=== PATIENT | female | born 1955 | race American Indian/Alaskan Native ===

== ENCOUNTER 2021-04-18 11:49 | Emergency (ER) | payer MEDICAID, OTHER ==
--- NOTE | 2021-04-18 13:37 | Event Note ---
ED Screening Note Date of service: 04/18/21 Time: 13:35 ED Screening Note: 65-year-old female patient with history of multiple C-sections, hysterectomy, appendectomy, and hypertension presents to the emergency department with complaints of abdominal pain starting 5 days ago. Describes the pain as "like someone is pouring hot water down my stomach and intestines." Pain is sometimes exacerbated by eating. Pain is most pronounced along the periumbilical area. Took Motrin with limited relief. Last bowel movement was 5 days ago. Hypertensive in triage -- 228/100 General: Awake, appropriately interactive, no acute distress. Neck: Supple. Full range of motion intact. Cardiovascular: Normal peripheral perfusion. Pulmonary: No respiratory distress. Patient is speaking normally without use of accessory muscles. Skin: No apparent rashes or lesions. Neurological: No facial asymmetry. Speech is clear. Follows commands. Patient is alert and oriented. Musculoskeletal: Moves all four extremities spontaneously with normal range of motion. Psych: Cooperative. Appropriate mood and affect. Initial labs ordered; imaging deferred to additional ED providers following complete history and comprehensive physical examination. I have greeted and performed a focused rapid initial assessment of this patient. A comprehensive ED assessment and evaluation of the patient, analysis of all test results, and completion of the medical decision-making process will be conducted by additional ED providers. This initial assessment/diagnostic orders/clinical plan/treatment(s) is/are subject to change based on patients health status, clinical progression and re-assessment. Further treatment and workup at subsequent clinical provider's discretion. Patient/guardian urged not to elope from the ED as their condition may be serious if not clinically assessed and managed.
[2021-04-18 13:55] LABS: Bilirubin,Urine NEG (Negative); Blood,Urine NEG (Negative); Color,Urine Yellow (Yellow); Mucus,Urine FEW /HPF; Protein,Urine <15 mg/dL mg/dL (Negative); Urobilinogen,Urine < 2.0 mg/dL (<2.0)
[2021-04-18 14:07] LABS: Basophils % (Auto) 0.5 % (0.0-1.8); Eosinophils % (Auto) 0.9 % (0.0-4.3); Hematocrit 42.8 % (30.3-42.9); Hemoglobin 14.7 gm/dl (10.1-14.3); Lymphocytes # (Auto) 2.1 K/mm3 (1.2-5.4); Lymphocytes % (Auto) 39.5 % (13.4-35.0); Mean Corpuscular HGB Conc 34 % (30-34); Mean Corpuscular Volume 86 fl (79-97); Monocytes # (Auto) 0.3 K/mm3 (0.0-0.8); Monocytes % (Auto) 6.3 % (0.0-7.3); Platelet Count 148 K/mm3 (140-440); Red Blood Count 4.98 M/mm3 (3.65-5.03); Red Cell Distribution Width 13.9 % (13.2-15.2)
[2021-04-18 14:26] LABS: Alanine Aminotransferase 10 units/L (7-56); Albumin 4.5 g/dL (3.9-5); BUN/Creatinine Ratio 13; Blood Urea Nitrogen 12 mg/dL (7-17); Calcium 9.3 mg/dL (8.4-10.2); Hemolysis Index 6
[2021-04-18] MEDS ORDERED: MORPHINE 4 MG/1 ML INJ IV ONE (14:43)
[2021-04-18] MEDS ORDERED: PANTOPRAZOLE 40 MG INJ IV ONE (14:43)
[2021-04-18] MEDS ORDERED: ONDANSETRON 4 MG/2 ML INJ IV ONE (14:43)
[2021-04-18] MEDS ORDERED: ALUM-MAG HYDROXIDE-SIMETHICONE 200-200-20MG/5ML ORAL LIQD 30 ML PO ONE (14:44)
[2021-04-18] MEDS ORDERED: LIDOCAINE VISCOUS 2% 15 ML ORAL LIQD PO ONE (14:44)
[2021-04-18] MEDS ORDERED: diphenhydrAMINE 50 MG/ML VIAL IV ONE (15:42)
[2021-04-18] MEDS ORDERED: HYDROmorphone 2 MG/1 ML INJ IV ONE (16:07)
--- NOTE | 2021-04-18 16:56 | Emergency Department Report ---
ED Abdominal Pain HPI - General Chief Complaint: Abdominal Pain Stated Complaint: ABD PAINS PUI?: No Time Seen by Provider: 04/18/21 14:30 Source: patient Mode of arrival: Ambulatory Limitations: No Limitations - History of Present Illness Initial Comments: Chief complaint: Abdominal pain HPI: This is a 65-year-old female with history of hypertension who presents with severe epigastric pain which began 2 to 3 days ago. Pain feels like a hot poker stabbing her in her stomach. Pain is worse with eating and drinking especially cold food. Pain is 10 out of 10. She has nausea with small amount of vomiting. She denies diarrhea. She denies fever. She has used ibuprofen recently for the pain which provided mild relief. No history of ulcer disease or pancreatitis. She smokes tobacco. However she has markedly decreased her cigarette use. She denies alcohol use. She does not have a PCP. Pain radiates to the umbilicus. She stopped taking lisinopril because "my blood pressure was good because I was watching it." Complaint: abdominal pain -: Gradual, days(s) (2 to 3 days ) Location: epigastric Radiation: other (Periumbilical) Migration to: periumbilical Severity: severe Severity scale (0 -10): 8 Quality: sharp, burning Consistency: constant Improves With: nothing Worsens With: eating Associated Symptoms: nausea, vomiting Treatments Prior to Arrival: NSAIDs - Related Data Previous Rx's Medication Instructions Recorded Last Taken Type Benzonatate [Tessalon Perles] 100 mg PO Q8HR PRN #20 capsule 08/08/19 Unknown Rx Naproxen [Naprosyn] 500 mg PO BID #20 tablet 08/08/19 Unknown Rx Ondansetron [Zofran Odt] 4 mg PO Q8HR PRN #20 tab.rapdis 08/08/19 Unknown Rx Omeprazole 40 mg PO DAILY #90 capsule. 04/18/21 Unknown Rx Valsartan [Diovan] 80 mg PO DAILY #90 tablet 04/18/21 Unknown Rx Allergies Allergy/AdvReac Type Severity Reaction Status Date / Time codeine Allergy Vomiting Verified 04/18/21 12:06 hydrocodone Allergy Vomiting Verified 04/18/21 12:06 Penicillins Allergy Vomiting Verified 04/18/21 12:06 ED Review of Systems ROS: Stated complaint: ABD PAINS Other details as noted in HPI Comment: All other systems reviewed and negative Constitutional: denies: chills, fever, malaise Respiratory: denies: cough, shortness of breath Gastrointestinal: abdominal pain, nausea, vomiting Musculoskeletal: denies: back pain Neurological: denies: headache ED Past Medical Hx - Past Medical History Previous Medical History?: Yes Hx Hypertension: Yes - Surgical History Past Surgical History?: Yes Hx Appendectomy: Yes Additional Surgical History: hysterectomy, x3, laparoscopy for endometriosis - Social History Smoking Status: Current Every Day Smoker - Medications Home Medications: Home Medications Medication Instructions Recorded Confirmed Last Taken Type Benzonatate [Tessalon Perles] 100 mg PO Q8HR PRN #20 capsule 08/08/19 Unknown Rx Naproxen [Naprosyn] 500 mg PO BID #20 tablet 08/08/19 Unknown Rx Ondansetron [Zofran Odt] 4 mg PO Q8HR PRN #20 tab.rapdis 08/08/19 Unknown Rx Omeprazole 40 mg PO DAILY #90 capsule. 04/18/21 Unknown Rx Valsartan [Diovan] 80 mg PO DAILY #90 tablet 04/18/21 Unknown Rx ED Physical Exam - General Limitations: No Limitations General appearance: alert, in no apparent distress - Head Head exam: Present: atraumatic, normocephalic - Eye Eye exam: Present: normal appearance - ENT ENT exam: Present: mucous membranes moist - Neck Neck exam: Present: normal inspection, full ROM - Respiratory Respiratory exam: Present: normal lung sounds bilaterally. Absent: respiratory distress, wheezes, rales, rhonchi - Cardiovascular Cardiovascular Exam: Present: regular rate, normal rhythm, normal heart sounds. Absent: systolic murmur, diastolic murmur, rubs, gallop - GI/Abdominal GI/Abdominal exam: Present: soft, tenderness, guarding, normal bowel sounds, other (Epigastric right upper quadrant tenderness with voluntary guarding). Absent: distended, rebound, rigid - Extremities Exam Extremities exam: Present: normal inspection - Neurological Exam Neurological exam: Present: alert, oriented X3 - Psychiatric Psychiatric exam: Present: normal affect, normal mood - Skin Skin exam: Present: warm, dry, intact, normal color. Absent: rash ED Course Vital Signs 04/18/21 04/18/21 12:06 15:59 Temperature 98.7 F Pulse Rate 65 58 L Respiratory 20 Rate Blood Pressure 216/89 Blood Pressure 228/100 [Left] O2 Sat by Pulse 100 Oximetry ED Medical Decision Making - Lab Data Result diagrams: 04/18/21 13:45 04/18/21 13:45 - Radiology Data Radiology results: report reviewed Patient Name: ANA LILIA URIBE Gender: Female Date of : 1955 Referring Provider: REGINO ANAYA Organization: [facility] Accession Number: [id number] Requested Date: April 18, 2021 14:42 Report Status: Final Requested Procedure: 1 Procedure Description: CT abdomen pelvis w con Modality: CT Findings Reporting MD: Paul Tucker Dictation Time: April 18, 2021 17:02 School Nurse: Not available Strainer Cleaner Date: CT ABDOMEN AND PELVIS WITH CONTRAST HISTORY: epigastric Abdominal Pain. COMPARISON: None. TECHNIQUE: CT images of the abdomen and pelvis were obtained following administration of intravenous contrast. All CT scans at this location are performed using CT dose reduction for ALARA by means of automated exposure control. CONTRAST: 100 ml of intravenous contrast administered. FINDINGS: Lungs/bones: Lung bases are clear Abdomen/pelvis: The liver, spleen, adrenal glands, pancreas, gallbladder and upper GI tract appear normal. Bilateral kidneys appear normal without hydronephrosis there is a rounded density within the left renal pelvis measuring 2 cm. This could represent a left renal pelvis which is slightly prominent. Small splenule is noted. Appendix is not clearly seen. No focal inflammatory changes identified. No significant adenopathy is seen in the abdomen or pelvis. Fatty infiltration of the right rectus abdominal muscles. IMPRESSION: 1. Rounded prominence within the right renal pelvis could represent extra renal pelvis. This has slightly increased density. A followup renal ultrasound could be performed. No hydronephrosis is otherwise seen. No definite renal or ureteral stone. 2. Fatty infiltration of the right rectus abdominal muscles 3. No focal inflammatory change is identified. Appendix is not clearly seen. 4. Small fluid level in the stomach however no significant inflammatory change and upper GI tract. No obstructive change. Signer Name: Paul Tucker MD Signed: 04/18/2021 5:02 PM Workstation Name: [id number] - Medical Decision Making 1. Epigastric pain. Post prandial due to severe pain in severely elevated blood pressure, CT abdomen pelvis ordered. No evidence of acute inflammatory obstructive process according to CT scan. Normal white count. My clinical impression is peptic ulcer disease. Patient given extensive written and verbal instruction. Prescribed omeprazole. Refer to calender feeder and outpatient medicine physician. 2. Hypertensive urgency due to medication noncompliance. I have prescribed a mlodipine and valsartan. Patient is discharged home. Critical care attestation.: If time is entered above; I have spent that time in minutes in the direct care of this critically ill patient, excluding procedure time. ED Disposition Clinical Impression: Peptic ulcer disease, Hypertensive urgency Disposition: DC- TO HOME OR SELFCARE Is pt being admited?: No Does the pt Need Aspirin: No Condition: Stable Instructions: Abdominal Pain (ED), Peptic Ulcer, [id number], Hypertension, Adult, [id number] Prescriptions: Valsartan [Diovan] 80 mg PO DAILY #90 tablet Omeprazole 40 mg PO DAILY #90 capsule.dr Referrals: JUAN SOLANO MD [Staff Physician] - 3-5 Days ALPESH SHEPARD MD [Staff Physician] - 3-5 Days Forms: Work/School Release Form(ED)
[2021-04-18] MEDS ORDERED: LORazepam 2 MG/ML VIAL IV ONE (17:27)
--- NOTE | 2021-04-18 18:06 | Cat Scan Report ---
CT ABDOMEN AND PELVIS WITH CONTRAST HISTORY: epigastric Abdominal Pain. COMPARISON: None. TECHNIQUE: CT images of the abdomen and pelvis were obtained following administration of intravenous contrast. All CT scans at this location are performed using CT dose reduction for ALARA by means of automated exposure control. CONTRAST: 100 ml of intravenous contrast administered. FINDINGS: Lungs/bones: Lung bases are clear Abdomen/pelvis: The liver, spleen, adrenal glands, pancreas, gallbladder and upper GI tract appear n ormal. Bilateral kidneys appear normal without hydronephrosis there is a rounded density within the l eft renal pelvis measuring 2 cm. This could represent a left renal pelvis which is slightly prominent . Small splenule is noted. Appendix is not clearly seen. No focal inflammatory changes identified. No significant adenopathy is seen in the abdomen or pelvis. Fatty infiltration of the right rectus abdo reddy muscles. IMPRESSION: 1. Rounded prominence within the right renal pelvis could represent extra renal pelvis. This has slig htly increased density. A follow-up renal ultrasound could be performed. No hydronephrosis is otherwi se seen. No definite renal or ureteral stone. 2. Fatty infiltration of the right rectus abdominal muscles 3. No focal inflammatory change is identified. Appendix is not clearly seen. 4. Small fluid level in the stomach however no significant inflammatory change and upper GI tract. No obstructive change. Signer Name: Paul Tucker MD Signed: 04/18/2021 6:02 PM Workstation Name: [id number]
[2021-04-18] MEDS ORDERED: HYDROmorphone 1 MG/1 ML INJ IV PRN (18:44)
[2021-04-18 22:52] VITALS: BP 216/89
== END 2021-04-18 20:25 | disposition home or self-care (01) ==
LOC: ED 11:49
DX: K27.9 Peptic ulcer, site unspecified, unspecified as acute or chronic, without hemorrhage or perforation (principal); I10 Essential (primary) hypertension; F17.200 Nicotine dependence, unspecified, uncomplicated; Z90.710 Acquired absence of both cervix and uterus; Z90.49 Acquired absence of other specified parts of digestive tract; Z98.890 Other specified postprocedural states; Z88.5 Allergy status to narcotic agent; Z88.0 Allergy status to penicillin; Z79.899 Other long term (current) drug therapy
CPT/HCPCS: 36415; 74177; 80053; 81001; 83690; 83735; 85025; 96374; 96375; 96376; 99284; C9113; J1170; J1200; J2060; J2270; J2405; Q9967

== ENCOUNTER 2021-05-30 16:41 | Observation (INO) | payer MEDICAID, OTHER ==
--- NOTE | 2021-05-30 18:21 | XRay Report ---
CHEST 1 VIEW 05/30/2021 6:15 PM INDICATION / CLINICAL INFORMATION: Chest pain. COMPARISON: 08/08/19. FINDINGS: SUPPORT DEVICES: None. HEART / MEDIASTINUM: The heart size and pulmonary vasculature are normal. The aorta is normal in loulou geoff. LUNGS / PLEURA: No significant pulmonary or pleural abnormality. No pneumothorax. ADDITIONAL FINDINGS: No significant additional findings. IMPRESSION: No acute abnormality or significant change. Signer Name: Hitesh Thompson MD Signed: 05/30/2021 6:17 PM Workstation Name: [id number]
[2021-05-30] MEDS ORDERED: NITROGLYCERIN 0.4 MG TAB SUBL SL ONE (18:23)
[2021-05-30] MEDS ORDERED: ONDANSETRON 4 MG/2 ML INJ IV ONE (18:24)
--- NOTE | 2021-05-30 18:26 | Emergency Department Report ---
ED Chest Pain HPI - General Chief Complaint: Chest Pain Stated Complaint: CHEST PAIN Time Seen by Provider: 05/30/21 17:59 Source: patient Mode of arrival: Stretcher Limitations: No Limitations - History of Present Illness Initial Comments: This is a 65-year-old -[place] female presents to the emergency department via EMS from work with complaint of intense pressure-like chest pain to the mid sternum and left side of the chest that started about 4 hours prior to presentation. It is associated with some mild shortness of breath and nausea without vomiting. She denies any fever, cough, lower extremity swelling, abdominal pain. She has a past medical history of hypertension. She is an occasional tobacco smoker. Currently she says her pain is 9 out of 10 in intensity and feels like "someone is sitting on my chest." No recent travel or sick contacts at home. She is vaccinated against COVID-19. No family history of early heart attack. - Related Data Previous Rx's Medication Instructions Recorded Last Taken Type Benzonatate [Tessalon Perles] 100 mg PO Q8HR PRN #20 capsule 08/08/19 Unknown Rx Naproxen [Naprosyn] 500 mg PO BID #20 tablet 08/08/19 Unknown Rx Ondansetron [Zofran Odt] 4 mg PO Q8HR PRN #20 tab.rapdis 08/08/19 Unknown Rx Omeprazole 40 mg PO DAILY #90 capsule. 04/18/21 Unknown Rx Valsartan [Diovan] 80 mg PO DAILY #90 tablet 04/18/21 Unknown Rx Allergies Allergy/AdvReac Type Severity Reaction Status Date / Time codeine Allergy Vomiting Verified 04/18/21 12:06 hydrocodone Allergy Vomiting Verified 04/18/21 12:06 Penicillins Allergy Vomiting Verified 04/18/21 12:06 Heart Score - HEART Score History: Slightly suspicious EKG: Normal Age: > 65 Risk factors: 1-2 risk factors Troponin: < normal limit HEART Score: 3 - EKG Read Time Time EKG Completed: 18:47 EKG Read Time: 18:50 - Critical Actions Critical Actions: 0-3 pts:0.9-1.7%risk of adverse cardiac event.Candidate for discharge ED Review of Systems ROS: Stated complaint: CHEST PAIN Other details as noted in HPI Comment: All other systems reviewed and negative Constitutional: denies: chills, fever Eyes: denies: eye pain, vision change ENT: denies: ear pain, throat pain Respiratory: shortness of breath. denies: cough Cardiovascular: chest pain. denies: palpitations, edema Gastrointestinal: nausea. denies: abdominal pain Genitourinary: denies: dysuria, discharge Musculoskeletal: denies: back pain, arthralgia Skin: denies: rash, lesions Neurological: denies: headache, weakness ED Past Medical Hx - Past Medical History Previous Medical History?: Yes Hx Hypertension: Yes Additional medical history: Stomach ulcers, TIA's - Surgical History Hx Appendectomy: Yes Additional Surgical History: hysterectomy, x3, laparoscopy for endometriosis - Social History Smoking Status: Current Some Day Smoker Substance Use Type: None - Medications Home Medications: Home Medications Medication Instructions Recorded Confirmed Last Taken Type Benzonatate [Tessalon Perles] 100 mg PO Q8HR PRN #20 capsule 08/08/19 Unknown Rx Naproxen [Naprosyn] 500 mg PO BID #20 tablet 08/08/19 Unknown Rx Ondansetron [Zofran Odt] 4 mg PO Q8HR PRN #20 tab.rapdis 08/08/19 Unknown Rx Omeprazole 40 mg PO DAILY #90 capsule. 04/18/21 Unknown Rx Valsartan [Diovan] 80 mg PO DAILY #90 tablet 04/18/21 Unknown Rx ED Physical Exam - General Limitations: No Limitations - Other Other exam information: GENERAL: The patient is well-developed well-nourished. HENT: Normocephalic. Atraumatic. Patient has moist mucous membranes. EYES: Extraocular motions are intact. NECK: Supple. Trachea is midline. CHEST/LUNGS: Clear to auscultation. There is no respiratory distress noted. Chest pain is not reproducible to palpation of the chest wall. HEART/CARDIOVASCULAR: Regular. There is no tachycardia. There is no murmur. ABDOMEN: Abdomen is soft, nontender. Patient has normal bowel sounds. There is no abdominal distention. SKIN: Skin is warm and dry. NEURO: The patient is awake, alert, and oriented. The patient is cooperative. The patient has no focal neurologic deficits. Normal speech. MUSCULOSKELETAL: There is no tenderness or deformity. There is no limitation range of motion. ED Course Vital Signs 05/30/21 05/30/21 05/30/21 18:42 20:11 20:52 Pulse Rate 87 65 Respiratory 19 18 Rate Blood Pressure 198/82 Blood Pressure 180/81 [Right] O2 Sat by Pulse 100 Oximetry LOUIS score - Louis Score Age > 65: (1) Yes Aspirin use within the Past 7 Days: (0) No 3 or more CAD Risk Factors: (0) No 2 or more Angina events in past 24 hrs: (1) Yes Known CAD with more than 50% Stenosis: (0) No Elevated Cardiac Markers: (0) No ST Deviation Greater than 0.5mm: (0) No LOUIS Score: 2 ED Medical Decision Making - Lab Data Result diagrams: 05/30/21 18:52 05/30/21 18:52 - EKG Data -: EKG Interpreted by Me EKG shows normal: sinus rhythm, axis (left axis deviation), intervals, QRS compl exes, ST-T waves Rate: normal - EKG Data When compared to previous EKG there are: previous EKG unavailable Interpretation: other (Sinus rhythm at 70 bpm, left axis deviation, normal intervals. No ST elevation ND.) - Radiology Data Radiology results: image reviewed interpreted by me: Chest x-ray does not show any acute process. There are no pleural effusions, obvious pneumonia and there is no pneumothorax. No widened mediastinum. - Medical Decision Making This patient presents to the emergency department with midsternal to left-sided chest pain that started about 4 hours prior to presentation. Heart and lung sounds are normal to auscultation. EKG does not have any morphology consistent with ST elevation myocardial infarction. Chest x-ray does not show any pneumonia, pleural effusions, pneumothorax, wid ened mediastinum, or any other acute process. Patient's labs have been unremarkable thus far including CBC, metabolic panel and a negative troponin. Patient presents with some hypertensive urgency. She was given her daily dose of Diovan and then a dose of hydralazine. The hypertension is also resistant to IV analgesia. Patient will be admitted to the hospital for further evaluation and treatment and was accepted for admission by the hospitalist, Dr. Alcantara. Critical Care Time: No Critical care attestation.: If time is entered above; I have spent that time in minutes in the direct care of this critically ill patient, excluding procedure time. ED Disposition Clinical Impression: Hypertensive urgency, Acute chest pain, Angina at rest Disposition: OP ADMIT IP TO THIS HOSP Is pt being admited?: Yes Condition: Serious Instructions: Chest Pain (ED) Referrals: PRIMARY CARE, [Primary Care Provider] - 3-5 Days Time of Disposition: 21:24
[2021-05-30] MEDS ORDERED: ONDANSETRON 4 MG ODT TAB PO ONE (19:00)
[2021-05-30 19:25] LABS: Basophils # (Auto) 0.1 K/mm3 (0.0-0.1); Basophils % (Auto) 1.1 % (0.0-1.8); Eosinophils # (Auto) 0.1 K/mm3 (0.0-0.4); Hematocrit 47.1 % (30.3-42.9); Hemoglobin 15.6 gm/dl (10.1-14.3); Lymphocytes # (Auto) 2.3 K/mm3 (1.2-5.4); Lymphocytes % (Auto) 39.7 % (13.4-35.0); Mean Corpuscular HGB Conc 33 % (30-34); Mean Corpuscular Volume 88 fl (79-97); Monocytes # (Auto) 0.4 K/mm3 (0.0-0.8); Monocytes % (Auto) 6.6 % (0.0-7.3); Platelet Count 150 K/mm3 (140-440); Red Blood Count 5.35 M/mm3 (3.65-5.03)
[2021-05-30 19:33] LABS: Alanine Aminotransferase 10 units/L (7-56); Albumin 4.4 g/dL (3.9-5); BUN/Creatinine Ratio 16; Blood Urea Nitrogen 14 mg/dL (7-17); Calcium 9.6 mg/dL (8.4-10.2); Hemolysis Index 6
[2021-05-30] MEDS ORDERED: ASPIRIN 81 MG TAB CHEW PO ONE (19:39)
[2021-05-30] MEDS ORDERED: VALSARTAN 40 MG TAB PO ONE (19:52)
[2021-05-30] MEDS ORDERED: fentaNYL 100 MCG/2 ML INJ ONE (20:00)
[2021-05-30] MEDS ORDERED: fentaNYL 100 MCG/2 ML INJ IV ONE (20:00)
[2021-05-30] MEDS ORDERED: hydrALAZINE 20 MG/1 ML INJ IV ONE (21:48)
[2021-05-30] MEDS ORDERED: traMADol 50 MG TAB PO PRN (22:17)
[2021-05-30] MEDS ORDERED: ACETAMINOPHEN 325 MG TAB PO PRN (22:17)
[2021-05-30] MEDS ORDERED: MORPHINE 4 MG/1 ML INJ IV PRN ×2 (22:17→23:38)
[2021-05-30] MEDS ORDERED: NITROGLYCERIN 0.4 MG TAB SUBL SL PRN (22:17)
[2021-05-30] MEDS ORDERED: BENZONATATE 100 MG CAP PO PRN (22:20)
--- NOTE | 2021-05-30 22:25 | History and Physical Report ---
History of Present Illness Date of examination: 05/30/21 Date of admission: 05/30/21 21:24 Chief complaint: Chest pain History of present illness: 65-year-old -[place] female with history of hypertension, stomach ulcer and TIA was brought to the emergency room because of intense pressure-like chest pain to the mid sternum and left side of the chest that started about 4 hours prior to presentation. It is associated with some mild shortness of breath and nausea without vomiting. She denies any fever, cough, lower extremity swelling, abdominal pain. She is an occasional tobacco smoker. Currently she says her pain is 9 out of 10 in intensity and feels like "someone is sitting on my chest." No recent travel or sick contacts at home. She is vaccinated against COVID-19. No family history of early heart attack. In the emergency room initial cardiac enzyme is negative troponin is 0.010 Past History Past Medical History: hypertension, other (Stomach ulcers, TIA) Medications and Allergies Allergies Allergy/AdvReac Type Severity Reaction Status Date / Time codeine Allergy Vomiting Verified 04/18/21 12:06 hydrocodone Allergy Vomiting Verified 04/18/21 12:06 Penicillins Allergy Vomiting Verified 04/18/21 12:06 Home Medications Medication Instructions Recorded Confirmed Last Taken Type Benzonatate [Tessalon Perles] 100 mg PO Q8HR PRN #20 capsule 08/08/19 Unknown Rx Naproxen [Naprosyn] 500 mg PO BID #20 tablet 08/08/19 Unknown Rx Ondansetron [Zofran Odt] 4 mg PO Q8HR PRN #20 tab.rapdis 08/08/19 Unknown Rx Omeprazole 40 mg PO DAILY #90 capsule. 04/18/21 Unknown Rx Valsartan [Diovan] 80 mg PO DAILY #90 tablet 04/18/21 Unknown Rx Review of Systems Cardiovascular: chest pain Gastrointestinal: nausea Exam - Constitutional Vitals: Temp Pulse Resp BP Pulse Ox 65 18 198/82 100 05/30/21 20:52 05/30/21 20:11 05/30/21 20:52 05/30/21 18:42 General appearance: Present: no acute distress, well-nourished - EENT Eyes: Present: PERRL ENT: hearing intact, clear oral mucosa - Neck Neck: Present: supple, normal ROM - Respiratory Respiratory effort: normal Respiratory: bilateral: CTA - Cardiovascular Heart Sounds: Present: S1 & S2. Absent: rub, click - Extremities Extremities: pulses symmetrical, No edema Peripheral Pulses: within normal limits - Abdominal General gastrointestinal: Present: soft, non-tender, non-distended, normal bowel sounds Female genitourinary: Present: normal - Integumentary Integumentary: Present: clear, warm, dry - Musculoskeletal Musculoskeletal: gait normal, strength equal bilaterally - Psychiatric Psychiatric: appropriate mood/affect, intact judgment & insight - Neurologic Neurologic: CNII-XII intact, moves all extremities HEART Score - HEART Score EKG: Normal Age: > 65 Risk factors: 1-2 risk factors Troponin: Troponin T < 0.010 ng/mL (0.00-0.029) 05/30/21 21:20 Troponin: < normal limit - Critical Actions Critical Actions: 0-3 pts:0.9-1.7%risk of adverse cardiac event.Candidate for discharge Results - Labs CBC & Chem 7: 05/30/21 18:52 05/30/21 18:52 Labs: Laboratory Last Values WBC 5.8 K/mm3 (4.5-11.0) 05/30/21 18:52 RBC 5.35 M/mm3 (3.65-5.03) H 05/30/21 18:52 Hgb 15.6 gm/dl (10.1-14.3) H 05/30/21 18:52 Hct 47.1 % (30.3-42.9) H 05/30/21 18:52 MCV 88 fl (79-97) 05/30/21 18:52 MCH 29 pg (28-32) 05/30/21 18:52 MCHC 33 % (30-34) 05/30/21 18:52 RDW 14.0 % (13.2-15.2) 05/30/21 18:52 Plt Count 150 K/mm3 (140-440) 05/30/21 18:52 Lymph % (Auto) 39.7 % (13.4-35.0) H 05/30/21 18:52 [place] % (Auto) 6.6 % (0.0-7.3) 05/30/21 18:52 Eos % (Auto) 1.0 % (0.0-4.3) 05/30/21 18:52 Baso % (Auto) 1.1 % (0.0-1.8) 05/30/21 18:52 Lymph # (Auto) 2.3 K/mm3 (1.2-5.4) 05/30/21 18:52 [place] # (Auto) 0.4 K/mm3 (0.0-0.8) 05/30/21 18:52 Eos # (Auto) 0.1 K/mm3 (0.0-0.4) 05/30/21 18:52 Baso # (Auto) 0.1 K/mm3 (0.0-0.1) 05/30/21 18:52 Seg Neutrophils % 51.6 % (40.0-70.0) 05/30/21 18:52 Seg Neutrophils # 3.0 K/mm3 (1.8-7.7) 05/30/21 18:52 Sodium 139 mmol/L (137-145) 05/30/21 18:52 Potassium 3.6 mmol/L (3.6-5.0) 05/30/21 18:52 Chloride 104.6 mmol/L (98-107) 05/30/21 18:52 Carbon Dioxide 24 mmol/L (22-30) 05/30/21 18:52 Anion Gap 14 mmol/L 05/30/21 18:52 BUN 14 mg/dL (7-17) 05/30/21 18:52 Creatinine 0.9 mg/dL (0.6-1.2) 05/30/21 18:52 Estimated GFR > 60 ml/min 05/30/21 18:52 BUN/Creatinine Ratio 16 % 05/30/21 18:52 Glucose 92 mg/dL (65-100) 05/30/21 18:52 Calcium 9.6 mg/dL (8.4-10.2) 05/30/21 18:52 Total Bilirubin 0.20 mg/dL (0.1-1.2) 05/30/21 18:52 AST 17 units/L (5-40) 05/30/21 18:52 ALT 10 units/L (7-56) 05/30/21 18:52 Alkaline Phosphatase 122 units/L (35-129) 05/30/21 18:52 Troponin T < 0.010 ng/mL (0.00-0.029) 05/30/21 21:20 Total Protein 7.5 g/dL (6.3-8.2) 05/30/21 18:52 Albumin 4.4 g/dL (3.9-5) 05/30/21 18:52 Albumin/Globulin Ratio 1.4 % 05/30/21 18:52 - Imaging and Cardiology Chest x-ray: report reviewed Assessment and Plan VTE prophylaxis?: Chemical Plan of care discussed with patient/family: Yes - Patient Problems (1) Acute coronary syndrome Current Visit: Yes Status: Acute Plan to address problem: Admit the patient to the medical telemetry. Aspirin 325 mg p.o. daily. Lipitor 40 mg p.o. daily. Nitroglycerin as needed. Serial cardiac enzymes. Echocardiogram. Consult cardiology if needed (2) Hypertension Current Visit: Yes Status: Acute Plan to address problem: Diovan 80 mg p.o. daily. We will continue the home medication we will monitor the blood pressure closely (3) GERD (gastroesophageal reflux disease) Current Visit: Yes Status: Acute Plan to address problem: Protonix 40 mg p.o. daily. We will continue the home medication. Outpatient follow-up with GI (4) TIA (transient ischemic attack) Current Visit: Yes Status: Acute Plan to address problem: Stable. Aspirin 325 mg p.o. daily. Lipitor 40 mg p.o. daily (5) DVT prophylaxis Current Visit: Yes Status: Acute Plan to address problem: Heparin 5000 units subcu every 8 hours for DVT prophylaxis. Protonix 40 mg p.o. daily for GI prophylaxis. Patient is a full code
[2021-05-30] MEDS ORDERED: HYDROmorphone 2 MG/1 ML INJ ONE (23:40)
[2021-05-31] MEDS: HYDROmorphone 2 MG/1 ML INJ IV PRN ×5 (00:29→22:56)
[2021-05-31 00:52] LABS: Basophils # (Auto) 0.1 K/mm3 (0.0-0.1); Basophils % (Auto) 0.7 % (0.0-1.8); Eosinophils # (Auto) 0.1 K/mm3 (0.0-0.4); Eosinophils % (Auto) 1.6 % (0.0-4.3); Hemoglobin 14.5 gm/dl (10.1-14.3); Lymphocytes # (Auto) 3.9 K/mm3 (1.2-5.4); Lymphocytes % (Auto) 50.5 % (13.4-35.0); Mean Corpuscular HGB Conc 33 % (30-34); Mean Corpuscular Volume 88 fl (79-97); Monocytes # (Auto) 0.7 K/mm3 (0.0-0.8); Monocytes % (Auto) 8.7 % (0.0-7.3); Platelet Count 169 K/mm3 (140-440); Red Blood Count 5.03 M/mm3 (3.65-5.03); Red Cell Distribution Width 14.5 % (13.2-15.2)
[2021-05-31 01:07] LABS: BUN/Creatinine Ratio 16; Blood Urea Nitrogen 14 mg/dL (7-17); Calcium 9.1 mg/dL (8.4-10.2); Hemolysis Index 1
[2021-05-31] MEDS: HEPARIN 5,000 UNIT/1 ML VIAL SUB-Q SCH ×3 (05:45→22:56)
[2021-05-31] MEDS ORDERED: VALSARTAN 40 MG TAB PO SCH (10:00)
[2021-05-31] MEDS ORDERED: NON-FORMULARY EACH (Valsartan [Diovan] 80 MG Tablet) PO SCH (10:00)
[2021-05-31] MEDS: ASPIRIN EC 325 MG TAB PO SCH (11:28)
[2021-05-31] MEDS: PANTOPRAZOLE 40 MG TAB PO SCH (11:28)
--- NOTE | 2021-05-31 16:02 | Consultation ---
History of Present Illness Consult date: 05/31/21 Requesting physician: CATHERINE LUDWIG Consult reason: chest pain History of present illness: Pt is a 65-year-old female, previously unknown to our practice, who presented with complaints of intermittent chest pressure that started approximately 3-4 hours prior to arrival. Pt reports bending over from her chair at home and states "when I sat back up, it felt like something was sitting on my chest." Pain radiates to her back and to the left side of her chest. Associated with diaphoresis, palpitations, SOB, and nausea. Severity has decreased from 08/24 to 02/22 with IV morphine and dilaudid. Trop neg x 3. ECG reveals no acute ischemic changes. CXR reveals no acute findings. Previous cardiac PET MPI 02/2014 revealed no evidence of ischemia or scar, EF 52% at rest and 62% during stress. No additional prior cardiac workup available for review. Past History Past Medical History: GERD, hypertension, other (TIA) Past Surgical History: denies: valve replacement, CABG, PTCA Social history: smoking (current smoker). denies: alcohol abuse Family history: denies: CAD Medications and Allergies Allergies Allergy/AdvReac Type Severity Reaction Status Date / Time codeine Allergy Vomiting Verified 04/18/21 12:06 hydrocodone Allergy Vomiting Verified 04/18/21 12:06 morphine Allergy Rash Verified 05/30/21 23:08 Penicillins Allergy Vomiting Verified 04/18/21 12:06 Home Medications Medication Instructions Recorded Confirmed Last Taken Type Benzonatate [Tessalon Perles] 100 mg PO Q8HR PRN #20 capsule 08/08/19 05/31/21 Unknown Rx Naproxen [Naprosyn] 500 mg PO BID #20 tablet 08/08/19 05/31/21 Unknown Rx Ondansetron [Zofran Odt] 4 mg PO Q8HR PRN #20 tab.rapdis 08/08/19 05/31/21 Unknown Rx Omeprazole 40 mg PO DAILY #90 capsule. 04/18/21 05/31/21 Unknown Rx Valsartan [Diovan] 80 mg PO DAILY #90 tablet 04/18/21 05/31/21 Unknown Rx Active Meds: Active Medications Acetaminophen (Acetaminophen 325 Mg Tab) 650 mg PO Q6H PRN PRN Reason: Pain, Mild (1-3) Aspirin (Aspirin Ec 325 Mg Tab) 325 mg PO QDAY [facility] Last Admin: 05/31/21 11:28 Dose: 325 mg Documented by: Atorvastatin Calcium (Atorvastatin 40 Mg Tab) 40 mg PO QHS [facility] Benzonatate (Benzonatate 100 Mg Cap) 100 mg PO Q8HR PRN PRN Reason: Cough Heparin Sodium (Porcine) (Heparin 5,000 Unit/1 Ml Vial) 5,000 unit SUB-Q Q8HR [facility] Last Admin: 05/31/21 05:45 Dose: 5,000 unit Documented by: Hydromorphone HCl (Hydromorphone 2 Mg/1 Ml Inj) 1 mg IV Q3H PRN PRN Reason: Pain , Severe (7-10) Last Admin: 05/31/21 11:28 Dose: 1 mg Documented by: Naproxen (Naproxen 500 Mg Tab) 500 mg PO BID [facility] Nitroglycerin (Nitroglycerin 0.4 Mg Tab Subl) 0.4 mg SL Q5M PRN PRN Reason: Chest Pain Pantoprazole Sodium (Pantoprazole 40 Mg Tab) 40 mg PO QDAY [facility] Last Admin: 05/31/21 11:28 Dose: 40 mg Documented by: Sodium Chloride (Sodium Chloride 0.9% 10 Ml Flush Syringe) 10 ml IV PRN PRN PRN Reason: LINE FLUSH Last Admin: 05/31/21 11:28 Dose: 10 ml Documented by: Tramadol HCl (Tramadol 50 Mg Tab) 50 mg PO Q6H PRN PRN Reason: Pain, Moderate (4-6) Valsartan (Valsartan 40 Mg Tab) 80 mg PO DAILY [facility] Last Admin: 05/31/21 11:28 Dose: 80 mg Documented by: Review of Systems Constitutional: sweats, no fever, no chills Ears, nose, mouth and throat: no nasal congestion, no sore throat Cardiovascular: chest pain, palpitations, shortness of breath, no orthopnea, no edema, no syncope, no lightheadedness, no claudication Respiratory: shortness of breath, no cough Gastrointestinal: nausea, no abdominal pain, no vomiting Genitourinary Female: no pelvic pain, no flank pain, no dysuria Musculoskeletal: no neck stiffness, no neck pain, no myalgias Integumentary: no rash, no wounds Neurological: no head injury, no paralysis, no weakness, no numbness, no tingling, no seizures, no syncope, no vertigo, no headaches Endocrine: no cold intolerance, no heat intolerance, no polydipsia, no polyuria Hematologic/Lymphatic: no easy bruising, no easy bleeding Allergic/Immunologic: no anaphylaxis Physical Examination Last Vital Signs Temp 98.0 F 05/31/21 15:48 Pulse 58 L 05/31/21 15:48 Resp 18 05/31/21 15:48 BP 131/54 05/31/21 15:48 Pulse Ox 100 05/31/21 15:48 General appearance: no acute distress HEENT: Positive: EOMI, Normocephaly, Mucus Membranes Moist Neck: Positive: neck supple, trachea midline Cardiac: Positive: Reg Rate and Rhythm, S1/S2 Lungs: Positive: clear to auscultation Neuro: Positive: Grossly Intact Abdomen: Positive: Soft. Negative: Tender Skin: Negative: Rash Musculoskeletal: No Pain Extremities: Present: upper extr. pulses, lower extr. pulses. Absent: edema Results 05/31/21 00:08 05/31/21 00:08 Cardiac Enzymes 05/30/21 Range/Units 18:52 AST 17 (5-40) units/L CBC 05/30/21 05/31/21 Range/Units 18:52 00:08 WBC 5.8 7.6 (4.5-11.0) K/mm3 RBC 5.35 H 5.03 (3.65-5.03) M/mm3 Hgb 15.6 H 14.5 H (10.1-14.3) gm/dl Hct 47.1 H 44.0 H (30.3-42.9) % Plt Count 150 169 (140-440) K/mm3 Lymph # (Auto) 2.3 3.9 (1.2-5.4) K/mm3 [place] # (Auto) 0.4 0.7 (0.0-0.8) K/mm3 Eos # (Auto) 0.1 0.1 (0.0-0.4) K/mm3 Baso # (Auto) 0.1 0.1 (0.0-0.1) K/mm3 Comprehensive Metabolic Panel 05/30/21 05/31/21 Range/Units 18:52 00:08 Sodium 139 139 (137-145) mmol/L Potassium 3.6 4.0 (3.6-5.0) mmol/L Chloride 104.6 105.6 (98-107) mmol/L Carbon Dioxide 24 22 (22-30) mmol/L BUN 14 14 (7-17) mg/dL Creatinine 0.9 0.9 (0.6-1.2) mg/dL Glucose 92 86 (65-100) mg/dL Calcium 9.6 9.1 (8.4-10.2) mg/dL AST 17 (5-40) units/L ALT 10 (7-56) units/L Alkaline Phosphatase 122 (35-129) units/L Total Protein 7.5 (6.3-8.2) g/dL Albumin 4.4 (3.9-5) g/dL - Imaging and Cardiology Echo: pending EKG: report reviewed, image reviewed - EKG Interpretation EKG: no acute changes EKG interpretations - EKG Sinus rhythms and dysrhythmias: sinus rhythm Assessment and Plan Echo reviewed - EF 55-60%, mild diastolic dysfxn, no significant valvular abnormalities. Plan for Lexiscan stress MPI on Wednesday. Hold Valsartan for now, and instead start Amlodipine 5mg daily. No beta sy due to mild sinus bradycardia at baseline. Signed by: Luisa Brown NP Pt seen in conjunction with Dr. Kay, who agrees with the assessment and plan of care. - Patient Problems (1) Chest pain Current Visit: Yes Status: Acute (2) Hypertension Current Visit: Yes Status: Chronic Qualifiers: Hypertension type: primary hypertension Qualified Code(s): I10 - Essential (primary) hypertension (3) GERD (gastroesophageal reflux disease) Current Visit: Yes Status: Chronic (4) Tobacco abuse Current Visit: Yes Status: Chronic (5) H/O TIA (transient ischemic attack) and stroke Current Visit: Yes Status: Chronic
[2021-05-31] MEDS: NAPROXEN 500 MG TAB PO SCH ×2 (16:26→22:55)
--- NOTE | 2021-05-31 17:44 | Progress Note ---
Assessment and Plan Assessment and plan: Assessment: Significant anterior chest pain radiating to left arm associated with nausea Mostly resolved but not completely aspirin and nitro, troponins x3 is negative Mild epigastric pain/discomfort with significant nausea and some reproducible epigastric tenderness. LFTs normal. History of GERD No personal or family of CAD. No history of chest pains. Smokes 1 pack of cigarettes in 1 week. History of hypertension Stable sinus bradycardia Questionable history of TIA Mild obesity Plan: Hemodynamically stable Cardiology is evaluating, patient is on anti-ischemic regimen Echo ordered, report pending Obtain lipase Continue PPI Discussed with the patient in detail. History Interval history: Patient presented with 2 episodes of significant anterior chest pain with radiation to left arm associated with nausea, improved with aspirin and nitro but did not complete resolve yet. She currently has significant nausea and feels like vomiting. She is not excessively using alcohol or NSAIDs. Hematochezia or melena. No history of CAD. No history of chest pains. Never had a stress test. Family history negative for CAD. She does smoke 1 pack of cigarettes in a week. No syncopal episodes. Hospitalist Physical - Constitutional Vitals: Temp Pulse Resp BP Pulse Ox 98.0 F 58 L 18 131/54 100 05/31/21 15:48 05/31/21 15:48 05/31/21 15:48 05/31/21 15:48 05/31/21 15:48 General appearance: Present: no acute distress, other (Mildly obese) - EENT Eyes: Present: PERRL, EOM intact. Absent: scleral icterus ENT: clear oral mucosa - Neck Neck: Present: supple - Respiratory Respiratory effort: normal Respiratory: bilateral: CTA - Cardiovascular Rhythm: other (Bradycardia) Heart Sounds: Absent: systolic murmur - Extremities Extremities: No edema - Abdominal General gastrointestinal: soft, tender (Mild to moderate epigastric tenderness present.), non-distended - Integumentary Integumentary: Absent: jaundice, rash - Psychiatric Psychiatric: appropriate mood/affect - Neurologic Neurologic: no focal deficits HEART Score - HEART Score EKG: Normal Age: > 65 Risk factors: 1-2 risk factors Troponin: Troponin T < 0.010 ng/mL (0.00-0.029) 05/31/21 15:41 Troponin: < normal limit - Critical Actions Critical Actions: 0-3 pts:0.9-1.7%risk of adverse cardiac event.Candidate for discharge Results - Labs CBC & Chem 7: 05/31/21 00:08 05/31/21 00:08 Labs: Laboratory Last Values WBC 7.6 K/mm3 (4.5-11.0) 05/31/21 00:08 RBC 5.03 M/mm3 (3.65-5.03) 05/31/21 00:08 Hgb 14.5 gm/dl (10.1-14.3) H 05/31/21 00:08 Hct 44.0 % (30.3-42.9) H 05/31/21 00:08 MCV 88 fl (79-97) 05/31/21 00:08 MCH 29 pg (28-32) 05/31/21 00:08 MCHC 33 % (30-34) 05/31/21 00:08 RDW 14.5 % (13.2-15.2) 05/31/21 00:08 Plt Count 169 K/mm3 (140-440) 05/31/21 00:08 Lymph % (Auto) 50.5 % (13.4-35.0) H 05/31/21 00:08 [place] % (Auto) 8.7 % (0.0-7.3) H 05/31/21 00:08 Eos % (Auto) 1.6 % (0.0-4.3) 05/31/21 00:08 Baso % (Auto) 0.7 % (0.0-1.8) 05/31/21 00:08 Lymph # (Auto) 3.9 K/mm3 (1.2-5.4) 05/31/21 00:08 [place] # (Auto) 0.7 K/mm3 (0.0-0.8) 05/31/21 00:08 Eos # (Auto) 0.1 K/mm3 (0.0-0.4) 05/31/21 00:08 Baso # (Auto) 0.1 K/mm3 (0.0-0.1) 05/31/21 00:08 Seg Neutrophils % 38.5 % (40.0-70.0) L 05/31/21 00:08 Seg Neutrophils # 2.9 K/mm3 (1.8-7.7) 05/31/21 00:08 Sodium 139 mmol/L (137-145) 05/31/21 00:08 Potassium 4.0 mmol/L (3.6-5.0) 05/31/21 00:08 Chloride 105.6 mmol/L (98-107) 05/31/21 00:08 Carbon Dioxide 22 mmol/L (22-30) 05/31/21 00:08 Anion Gap 15 mmol/L 05/31/21 00:08 BUN 14 mg/dL (7-17) 05/31/21 00:08 Creatinine 0.9 mg/dL (0.6-1.2) 05/31/21 00:08 Estimated GFR > 60 ml/min 05/31/21 00:08 BUN/Creatinine Ratio 16 % 05/31/21 00:08 Glucose 86 mg/dL (65-100) 05/31/21 00:08 Calcium 9.1 mg/dL (8.4-10.2) 05/31/21 00:08 Total Bilirubin 0.20 mg/dL (0.1-1.2) 05/30/21 18:52 AST 17 units/L (5-40) 05/30/21 18:52 ALT 10 units/L (7-56) 05/30/21 18:52 Alkaline Phosphatase 122 units/L (35-129) 05/30/21 18:52 Troponin T < 0.010 ng/mL (0.00-0.029) 05/31/21 15:41 Total Protein 7.5 g/dL (6.3-8.2) 05/30/21 18:52 Albumin 4.4 g/dL (3.9-5) 05/30/21 18:52 Albumin/Globulin Ratio 1.4 % 05/30/21 18:52 Vicente/IV: Voiding Method Toilet Active Medications - Current Medications Current Medications: Generic Name Dose Route Start Last Admin Trade Name Freq PRN Reason Stop Dose Admin Acetaminophen 650 mg 05/30/21 22:17 Acetaminophen 325 Mg Tab PO Q6H PRN Pain, Mild (1-3) Amlodipine Besylate 5 mg 06/01/21 10:00 Amlodipine 5 Mg Tab PO QDAY ROSA M Aspirin 325 mg 05/31/21 10:00 05/31/21 11:28 Aspirin Ec 325 Mg Tab PO 325 mg QDAY [facility] Administration Atorvastatin Calcium 40 mg 05/31/21 22:00 Atorvastatin 40 Mg Tab PO QHS ROSA M Benzonatate 100 mg 05/30/21 22:20 Benzonatate 100 Mg Cap PO Q8HR PRN Cough Heparin Sodium (Porcine) 5,000 unit 05/31/21 06:00 05/31/21 16:27 Heparin 5,000 Unit/1 Ml Vial SUB-Q Not Given Q8HR ROSA M Hydromorphone HCl 1 mg 05/30/21 23:40 05/31/21 11:28 Hydromorphone 2 Mg/1 Ml Inj IV 1 mg Q3H PRN Administration Pain , Severe (7-10) Naproxen 500 mg 05/31/21 10:00 05/31/21 16:26 Naproxen 500 Mg Tab PO Not Given BID ROSA M Nitroglycerin 0.4 mg 05/30/21 22:17 Nitroglycerin 0.4 Mg Tab Subl SL Q5M PRN Chest Pain Pantoprazole Sodium 40 mg 05/31/21 10:00 05/31/21 11:28 Pantoprazole 40 Mg Tab PO 40 mg QDAY ROSA M Administration Sodium Chloride 10 ml 05/30/21 22:17 05/31/21 11:28 Sodium Chloride 0.9% 10 Ml Flush Syringe IV 10 ml PRN PRN Administration LINE FLUSH Tramadol HCl 50 mg 05/30/21 22:17 Tramadol 50 Mg Tab PO Q6H PRN Pain, Moderate (4-6)
[2021-05-31] MEDS ORDERED: MAGNESIUM HYDROXIDE (MOM) ORAL LIQD UDC PO PRN (22:48)
[2021-06-01] MEDS: HEPARIN 5,000 UNIT/1 ML VIAL SUB-Q SCH ×4 (05:13→21:44)
[2021-06-01] MEDS: HYDROmorphone 2 MG/1 ML INJ IV PRN ×3 (07:29→21:45)
--- NOTE | 2021-06-01 08:38 | Progress Note ---
Assessment and Plan Echo reviewed - EF 55-60%, mild diastolic dysfxn, no significant valvular abnormalities. Plan for Lexiscan stress MPI in AM. NPO after midnight. Continue present cardiac mgmt. Signed by: Luisa Brown NP Pt seen in conjunction with Dr. Kay, who agrees with the assessment and plan of care. - Patient Problems (1) Chest pain Current Visit: Yes Status: Acute (2) Hypertension Current Visit: Yes Status: Chronic Qualifiers: Hypertension type: primary hypertension Qualified Code(s): I10 - Essential (primary) hypertension (3) GERD (gastroesophageal reflux disease) Current Visit: Yes Status: Chronic (4) Tobacco abuse Current Visit: Yes Status: Chronic (5) H/O TIA (transient ischemic attack) and stroke Current Visit: Yes Status: Chronic Subjective Date of service: 06/01/21 Principal diagnosis: Chest Pain Interval history: Still with mild chest pain this AM, relieved by IV Dilaudid. No additional complaints. Tele reviewed - SR/SB 40-50s, no acute events overnight. Objective Last Vital Signs Temp 98.3 F 06/01/21 05:23 Pulse 57 L 06/01/21 05:23 Resp 18 06/01/21 05:23 BP 137/62 06/01/21 05:23 Pulse Ox 100 06/01/21 05:23 - Physical Examination General: No Apparent Distress HEENT: Positive: EOMI, Normocephaly, Mucus Membranes Moist Neck: Positive: neck supple, trachea midline Cardiac: Positive: Reg Rate and Rhythm, S1/S2 Lungs: Positive: clear to auscultation Neuro: Positive: Grossly Intact Abdomen: Positive: Soft. Negative: Tender Skin: Negative: Rash Musculoskeletal: No Pain Extremities: Present: upper extr. pulses, lower extr. pulses. Absent: edema - Imaging and Cardiology EKG: report reviewed, image reviewed Pharmacologic stress test: pending Echo: report reviewed - Telemetry EKG Rhythm: Sinus Bradycardia - EKG Sinus rhythms and dysrhythmias: sinus rhythm
[2021-06-01] MEDS: PANTOPRAZOLE 40 MG TAB PO SCH (11:09)
[2021-06-01] MEDS: amLODIPine 5 MG TAB PO SCH (11:09)
[2021-06-01] MEDS: NAPROXEN 500 MG TAB PO SCH ×2 (11:09→21:44)
[2021-06-01] MEDS: ASPIRIN EC 325 MG TAB PO SCH (11:09)
[2021-06-01] MEDS ORDERED: ONDANSETRON 4 MG/2 ML INJ IV PRN (11:16)
--- NOTE | 2021-06-01 12:13 | XRay Report ---
ABDOMEN 1 VIEW(S) INDICATION / CLINICAL INFORMATION: constipaiton, n/v. COMPARISON: None available. FINDINGS: TUBES / LINES: None. BOWEL GAS PATTERN/EXTRALUMINAL GAS: No significant abnormality. No pneumatosis or secondary signs of free air. ADDITIONAL FINDINGS: No significant additional findings. IMPRESSION: 1. No acute findings. Signer Name: Fuad Barrientos MD Signed: 06/01/2021 12:09 PM Workstation Name: [id number]
[2021-06-01 15:02] LABS: Basophils % (Auto) 0.7 % (0.0-1.8); Eosinophils % (Auto) 0.8 % (0.0-4.3); Hematocrit 42.3 % (30.3-42.9); Hemoglobin 14.2 gm/dl (10.1-14.3); Lymphocytes # (Auto) 1.8 K/mm3 (1.2-5.4); Lymphocytes % (Auto) 35.6 % (13.4-35.0); Mean Corpuscular HGB Conc 34 % (30-34); Mean Corpuscular Volume 88 fl (79-97); Monocytes # (Auto) 0.4 K/mm3 (0.0-0.8); Monocytes % (Auto) 7.5 % (0.0-7.3); Platelet Count 136 K/mm3 (140-440); Red Blood Count 4.78 M/mm3 (3.65-5.03); Red Cell Distribution Width 14.1 % (13.2-15.2)
[2021-06-01 15:13] LABS: Alanine Aminotransferase 8 units/L (7-56); Albumin 4.2 g/dL (3.9-5); BUN/Creatinine Ratio 14; Blood Urea Nitrogen 13 mg/dL (7-17); Calcium 9.6 mg/dL (8.4-10.2); Hemolysis Index 15
--- NOTE | 2021-06-01 15:41 | Progress Note ---
Assessment and Plan Assessment and plan: Assessment: Presented with significant anterior chest pain radiating to left arm associated with nausea Mostly resolved but not completely, aspirin and nitro, troponins x3 is negative Mild epigastric pain/discomfort with significant nausea/vomiting and some reproducible epigastric tenderness. LFTs normal. History of GERD and chronic constipation from IBD No personal or family of CAD. No history of chest pains. Smokes 1 pack of cigarettes in 1 week. History of hypertension Stable sinus bradycardia Questionable history of TIA Mild obesity The predominant symptoms currently are nausea and vomiting with some epigastric tenderness. Plan: Hemodynamically stable Cardiology is evaluating, patient is on anti-ischemic regimen Echo unremarkable with a normal LV function. No wall motion normalities Lipids normal. LFTs remain normal. KUB unremarkable, afebrile. Normal WBC. Gallbladder ultrasound ordered. Defer GI consult until stress test is completed Discussed with the patient in detail and the staff History Interval history: Patient presented with 2 episodes of significant anterior chest pain with radiation to left arm associated with nausea, improved with aspirin and nitro but did not complete resolve yet. She currently has significant nausea and feels like vomiting. Patient history of chronic constipation from IBD. She is not excessively using alcohol or NSAIDs. No hematochezia or melena. No history of CAD. No history of chest pains. Never had a stress test. Family history negative for CAD. She does smoke 1 pack of cigarettes in a week. No syncopal episodes. Serial troponins x3, cardiology is evaluating, nuclear stress test ordered for tomorrow. Patient is receiving PPI and antiemetic. Gallbladder ultrasound ordered. LFTs however normal. Afebrile. Normal WBC. KUB unremarkable. Hospitalist Physical - Constitutional Vitals: Temp Pulse Resp BP Pulse Ox 98.3 F 57 L 18 137/62 100 06/01/21 05:23 06/01/21 05:23 06/01/21 05:23 06/01/21 05:23 06/01/21 05:23 General appearance: Present: mild distress (From nausea and vomiting) - EENT Eyes: Present: PERRL, EOM intact ENT: hearing intact, clear oral mucosa - Neck Neck: Present: supple, other (No JVD) - Respiratory Respiratory effort: normal Respiratory: bilateral: CTA - Cardiovascular Rhythm: regular - Extremities Extremities: No edema - Abdominal General gastrointestinal: soft, non-distended, normal bowel sounds, other (Still some epigastric tenderness.), no rigid - Integumentary Integumentary: Absent: rash - Psychiatric Psychiatric: appropriate mood/affect - Neurologic Neurologic: no focal deficits HEART Score - HEART Score EKG: Normal Age: > 65 Risk factors: 1-2 risk factors Troponin: Troponin T < 0.010 ng/mL (0.00-0.029) 05/31/21 15:41 Troponin: < normal limit - Critical Actions Critical Actions: 0-3 pts:0.9-1.7%risk of adverse cardiac event.Candidate for discharge Results - Labs CBC & Chem 7: 06/01/21 14:44 06/01/21 14:44 Labs: Laboratory Last Values WBC 4.9 K/mm3 (4.5-11.0) 06/01/21 14:44 RBC 4.78 M/mm3 (3.65-5.03) 06/01/21 14:44 Hgb 14.2 gm/dl (10.1-14.3) 06/01/21 14:44 Hct 42.3 % (30.3-42.9) 06/01/21 14:44 MCV 88 fl (79-97) 06/01/21 14:44 MCH 30 pg (28-32) 06/01/21 14:44 MCHC 34 % (30-34) 06/01/21 14:44 RDW 14.1 % (13.2-15.2) 06/01/21 14:44 Plt Count 136 K/mm3 (140-440) L 06/01/21 14:44 Lymph % (Auto) 35.6 % (13.4-35.0) H 06/01/21 14:44 [place] % (Auto) 7.5 % (0.0-7.3) H 06/01/21 14:44 Eos % (Auto) 0.8 % (0.0-4.3) 06/01/21 14:44 Baso % (Auto) 0.7 % (0.0-1.8) 06/01/21 14:44 Lymph # (Auto) 1.8 K/mm3 (1.2-5.4) 06/01/21 14:44 [place] # (Auto) 0.4 K/mm3 (0.0-0.8) 06/01/21 14:44 Eos # (Auto) 0.0 K/mm3 (0.0-0.4) 06/01/21 14:44 Baso # (Auto) 0.0 K/mm3 (0.0-0.1) 06/01/21 14:44 Seg Neutrophils % 55.4 % (40.0-70.0) 06/01/21 14:44 Seg Neutrophils # 2.7 K/mm3 (1.8-7.7) 06/01/21 14:44 Sodium 137 mmol/L (137-145) 06/01/21 14:44 Potassium 4.2 mmol/L (3.6-5.0) 06/01/21 14:44 Chloride 101.9 mmol/L (98-107) 06/01/21 14:44 Carbon Dioxide 29 mmol/L (22-30) D 06/01/21 14:44 Anion Gap 10 mmol/L 06/01/21 14:44 BUN 13 mg/dL (7-17) 06/01/21 14:44 Creatinine 0.9 mg/dL (0.6-1.2) 06/01/21 14:44 Estimated GFR > 60 ml/min 06/01/21 14:44 BUN/Creatinine Ratio 14 % 06/01/21 14:44 Glucose 94 mg/dL (65-100) 06/01/21 14:44 Calcium 9.6 mg/dL (8.4-10.2) 06/01/21 14:44 Total Bilirubin 0.30 mg/dL (0.1-1.2) 06/01/21 14:44 AST 17 units/L (5-40) 06/01/21 14:44 ALT 8 units/L (7-56) 06/01/21 14:44 Alkaline Phosphatase 109 units/L (35-129) 06/01/21 14:44 Troponin T < 0.010 ng/mL (0.00-0.029) 05/31/21 15:41 Total Protein 6.7 g/dL (6.3-8.2) 06/01/21 14:44 Albumin 4.2 g/dL (3.9-5) 06/01/21 14:44 Albumin/Globulin Ratio 1.7 % 06/01/21 14:44 Lipase 11 units/L (13-60) L 06/01/21 14:44 Vicente/IV: Voiding Method Toilet Active Medications - Current Medications Current Medications: Generic Name Dose Route Start Last Admin Trade Name Freq PRN Reason Stop Dose Admin Acetaminophen 650 mg 05/30/21 22:17 Acetaminophen 325 Mg Tab PO Q6H PRN Pain, Mild (1-3) Amlodipine Besylate 5 mg 06/01/21 10:00 06/01/21 11:09 Amlodipine 5 Mg Tab PO 5 mg QDAY ROSA M Administration Aspirin 325 mg 05/31/21 10:00 06/01/21 11:09 Aspirin Ec 325 Mg Tab PO 325 mg QDAY ROSA M Administration Atorvastatin Calcium 40 mg 05/31/21 22:00 05/31/21 22:55 Atorvastatin 40 Mg Tab PO 40 mg QHS ROSA M Administration Benzonatate 100 mg 05/30/21 22:20 Benzonatate 100 Mg Cap PO Q8HR PRN Cough Heparin Sodium (Porcine) 5,000 unit 05/31/21 06:00 06/01/21 14:10 Heparin 5,000 Unit/1 Ml Vial SUB-Q Not Given Q8HR ROSA M Hydromorphone HCl 1 mg 05/30/21 23:40 06/01/21 12:56 Hydromorphone 2 Mg/1 Ml Inj IV 1 mg Q3H PRN Administration Pain , Severe (7-10) Magnesium Hydroxide 30 ml 05/31/21 22:48 Magnesium Hydroxide (Mom) Oral Liqd Udc PO QDAY PRN Constipation Naproxen 500 mg 05/31/21 10:00 06/01/21 11:09 Naproxen 500 Mg Tab PO 500 mg BID ROSA M Administration Nitroglycerin 0.4 mg 05/30/21 22:17 Nitroglycerin 0.4 Mg Tab Subl SL Q5M PRN Chest Pain Ondansetron HCl 4 mg 06/01/21 11:16 Ondansetron 4 Mg/2 Ml Inj IV Q6H PRN Nausea Pantoprazole Sodium 40 mg 06/01/21 22:00 Pantoprazole 40 Mg Tab PO BID ROSA M Pantoprazole Sodium 40 mg 06/01/21 16:00 Pantoprazole 40 Mg Inj IV BID ROSA M Sodium Chloride 10 ml 05/30/21 22:17 05/31/21 11:28 Sodium Chloride 0.9% 10 Ml Flush Syringe IV 10 ml PRN PRN Administration LINE FLUSH Tramadol HCl 50 mg 05/30/21 22:17 Tramadol 50 Mg Tab PO Q6H PRN Pain, Moderate (4-6)
[2021-06-01] MEDS: PANTOPRAZOLE 40 MG INJ IV SCH ×2 (16:57→21:44)
[2021-06-01] MEDS ORDERED: PANTOPRAZOLE 40 MG TAB PO SCH (22:00)
[2021-06-02] MEDS: HYDROmorphone 2 MG/1 ML INJ IV PRN ×3 (05:21→22:09)
[2021-06-02] MEDS: HEPARIN 5,000 UNIT/1 ML VIAL SUB-Q SCH ×3 (05:21→22:10)
[2021-06-02 05:52] LABS: Basophils # (Auto) 0.1 K/mm3 (0.0-0.1); Basophils % (Auto) 0.9 % (0.0-1.8); Eosinophils % (Auto) 0.8 % (0.0-4.3); Hematocrit 43.6 % (30.3-42.9); Hemoglobin 14.2 gm/dl (10.1-14.3); Lymphocytes # (Auto) 2.5 K/mm3 (1.2-5.4); Lymphocytes % (Auto) 43.3 % (13.4-35.0); Mean Corpuscular HGB Conc 33 % (30-34); Mean Corpuscular Volume 87 fl (79-97); Monocytes # (Auto) 0.3 K/mm3 (0.0-0.8); Platelet Count 151 K/mm3 (140-440); Red Blood Count 4.99 M/mm3 (3.65-5.03)
[2021-06-02 06:07] LABS: Alanine Aminotransferase 8 units/L (7-56); BUN/Creatinine Ratio 14; Blood Urea Nitrogen 14 mg/dL (7-17); Calcium 9.2 mg/dL (8.4-10.2); Hemolysis Index 6
[2021-06-02] MEDS ORDERED: REGADENOSON 0.4 MG/5 ML INJ IV ONE (09:29)
--- NOTE | 2021-06-02 10:32 | Ultrasound Report ---
LIMITED RUQ ABDOMINAL ULTRASOUND INDICATION / CLINICAL INFORMATION: epigastric pain with vomitting. COMPARISON: CT from 04/18/2021 FINDINGS: PANCREAS: Visualized portions of the pancreas are within normal limits. ABDOMINAL AORTA: No significant abnormality. IVC: No significant abnormality. LIVER: The liver measures 11.7 cm in length. The liver demonstrates increased echogenicity, compatib le with fatty infiltration. No focal hepatic lesion. PORTAL VEIN: Normal hepatopedal blood flow in the main portal vein. GALLBLADDER: The gallbladder is unremarkable. There is no cholelithiasis, gallbladder wall thickening , or pericholecystic fluid. BILE DUCTS: No significant abnormality. Common bile duct measures 2 mm. RIGHT KIDNEY: No significant abnormality visualized. FREE FLUID: None. ADDITIONAL FINDINGS: None. IMPRESSION: 1. Fatty infiltration of the liver. 2. No acute sonographic abnormality of the right upper quadrant. Signer Name: Tito Hernández MD Signed: 06/02/2021 10:27 AM Workstation Name: [id number]
[2021-06-02] MEDS: PANTOPRAZOLE 40 MG INJ IV SCH ×2 (11:13→22:08)
[2021-06-02] MEDS: ASPIRIN EC 325 MG TAB PO SCH (11:16)
[2021-06-02] MEDS: NAPROXEN 500 MG TAB PO SCH ×2 (11:16→22:08)
[2021-06-02] MEDS: amLODIPine 5 MG TAB PO SCH (11:17)
--- NOTE | 2021-06-02 12:29 | Nuclear Medicine Report ---
APPROVED REPORT Exam: Nuclear Stress Test Indication: Chest pain BMI: 0 Stress Test Details HR Max Heart Rate (APMHR): 154.023225 bpm Target HR (85% APMHR): 130.330609 bpm BP ECG NM EXAM: Myocardial Perfusion REST/STRESS Resting Data Rest SPECT myocardial perfusion imaging was performed in supine position 45 minutes following the intravenous injection of 10 mCi of Tc-99m Myoview. Time of rest injection: 0700 Exercise Stress At peak stress, the patient was injected intravenously with 28mCi of Tc-99m Myoview. Time of stress injection: 1000 Gated Stress SPECT was performed 45 minutes after stress injection. The images were gated to evaluate regional wall motion and calculate left ventricular ejection fraction. Study Data TID = 1.05. Perfusion Nuclear Conclusion ECG Findings: negative for ischemia Clinical Findings: negative for ischemia Nuclear Findings: negative for ischemia Exercise Capacity: normal Left Ventricular Function: normal Normal study. No scintigraphic evidence for myocardial ischemia or scar. Normal left ventricular size and function with no regional wall motion abnormalities. negative treadmill 6 minutes melissa procotol fair exercise capacity no exaggerated bp response to exercise no ekg changes or arrthymia noted
--- NOTE | 2021-06-02 16:04 | Progress Note ---
Assessment and Plan Chest pain * Patient is currently chest pain-free with no cardiac complaint. Troponin is negative x4. AMI is ruled out * Exercise MPI stress test 06/02/2021: Negative for reversible ischemia * Echo reviewed - EF 55-60%, mild diastolic dysfxn, no significant valvular abnormalities. Hypertension * Continue current antihypertensive regimen: Amlodipine 5 mg Tobacco use * Cessation encouraged Patient is in stable cardiac status. Cardiac symptoms have resolved. Patient may discharge from cardiology standpoint. Will follow on as-needed basis. Patient should follow-up with Dr. Luciana Kay, [facility] heart specialists in our [place] office on 07-05 at 1 PM. #[phone] Patient seen in conjunction with Dr. Andres who agrees with this assessment and plan of care - Patient Problems (1) Chest pain Current Visit: Yes Status: Resolved (2) Hypertension Current Visit: Yes Status: Chronic Qualifiers: Hypertension type: primary hypertension Qualified Code(s): I10 - Essential (primary) hypertension (3) GERD (gastroesophageal reflux disease) Current Visit: Yes Status: Chronic (4) Tobacco abuse Current Visit: Yes Status: Chronic (5) H/O TIA (transient ischemic attack) and stroke Current Visit: Yes Status: Chronic Subjective Date of service: 06/02/21 Principal diagnosis: Chest Pain Interval history: Patient resting comfortably in bed. No shortness of breath or chest pain overnight. Telemetry reviewed: Sinus bradycardia 54. No events Objective Last Vital Signs Temp 98.5 F 06/02/21 11:20 Pulse 63 06/02/21 11:39 Resp 18 06/02/21 11:20 BP 185/72 06/02/21 11:20 Pulse Ox 98 06/02/21 11:39 - Physical Examination General: No Apparent Distress HEENT: Positive: EOMI, Normocephaly, Mucus Membranes Moist Neck: Positive: neck supple, trachea midline Cardiac: Positive: Reg Rate and Rhythm, S1/S2 Lungs: Positive: Normal Exam, Normal Breath Sounds Neuro: Positive: Grossly Intact Abdomen: Positive: Soft. Negative: Tender Skin: Negative: Rash, Wound Musculoskeletal: No Pain Extremities: Present: upper extr. pulses, lower extr. pulses. Absent: edema - Labs and Meds Cardiac Enzymes 06/02/21 Range/Units 05:03 AST 16 (5-40) units/L CBC 06/02/21 Range/Units 05:03 WBC 5.7 (4.5-11.0) K/mm3 RBC 4.99 (3.65-5.03) M/mm3 Hgb 14.2 (10.1-14.3) gm/dl Hct 43.6 H (30.3-42.9) % Plt Count 151 (140-440) K/mm3 Lymph # (Auto) 2.5 (1.2-5.4) K/mm3 [place] # (Auto) 0.3 (0.0-0.8) K/mm3 Eos # (Auto) 0.0 (0.0-0.4) K/mm3 Baso # (Auto) 0.1 (0.0-0.1) K/mm3 Comprehensive Metabolic Panel 06/02/21 Range/Units 05:03 Sodium 142 (137-145) mmol/L Potassium 4.1 (3.6-5.0) mmol/L Chloride 105.7 (98-107) mmol/L Carbon Dioxide 26 (22-30) mmol/L BUN 14 (7-17) mg/dL Creatinine 1.0 (0.6-1.2) mg/dL Glucose 85 (65-100) mg/dL Calcium 9.2 (8.4-10.2) mg/dL AST 16 (5-40) units/L ALT 8 (7-56) units/L Alkaline Phosphatase 114 (35-129) units/L Total Protein 6.9 (6.3-8.2) g/dL Albumin 4.0 (3.9-5) g/dL - Imaging and Cardiology EKG: report reviewed, image reviewed Echo: report reviewed (Echocardiogram 05/30/2021: LVEF is 55 to 60%. LV normal size, LV SF normal. Mild diastolic dysfunction. RV SF is normal. No valvular abnormalities.) - Telemetry EKG Rhythm: Sinus Rhythm - EKG Sinus rhythms and dysrhythmias: sinus rhythm
--- NOTE | 2021-06-02 16:50 | Gastroenterology Consultation ---
History of Present Illness - Reason for Consult Consult date: 06/02/21 n/v, abd pain Requesting physician: CATHERINE LUDWIG - History of Present Illness The patient is a 65 yo aaf who presented with 2 days of chest pain radiating to left chest/shoulder and back. sx's were associated with n/v. she had cardiac work-up including stress test which was negative. reports indigestion/reflux sx's and prior occasional nausea episodes but pain and vomiting was new onset for her. she had n/v after stress test today. sx's better now, tolerated liquids this afternoon. she wishes to go home and would like to try advanced diet. denies nsaid's. no prior egd/colonoscopy. Past History Past Medical History: GERD, hypertension, other (TIA) Past Surgical History: denies: valve replacement, CABG, PTCA Social history: smoking (current smoker). denies: alcohol abuse Family history: denies: CAD Medications and Allergies Allergies Allergy/AdvReac Type Severity Reaction Status Date / Time codeine Allergy Vomiting Verified 04/18/21 12:06 hydrocodone Allergy Vomiting Verified 04/18/21 12:06 morphine Allergy Rash Verified 05/30/21 23:08 Penicillins Allergy Vomiting Verified 04/18/21 12:06 Home Medications Medication Instructions Recorded Confirmed Last Taken Type Benzonatate [Tessalon Perles] 100 mg PO Q8HR PRN #20 capsule 08/08/19 05/31/21 Unknown Rx Naproxen [Naprosyn] 500 mg PO BID #20 tablet 08/08/19 05/31/21 Unknown Rx Ondansetron [Zofran Odt] 4 mg PO Q8HR PRN #20 tab.rapdis 08/08/19 05/31/21 Unknown Rx Omeprazole 40 mg PO DAILY #90 capsule. 04/18/21 05/31/21 Unknown Rx Valsartan [Diovan] 80 mg PO DAILY #90 tablet 04/18/21 05/31/21 Unknown Rx Active Meds: Active Medications Acetaminophen (Acetaminophen 325 Mg Tab) 650 mg PO Q6H PRN PRN Reason: Pain, Mild (1-3) Amlodipine Besylate (Amlodipine 5 Mg Tab) 5 mg PO QDAY ROSA M Last Admin: 06/02/21 11:17 Dose: Not Given Documented by: Aspirin (Aspirin Ec 325 Mg Tab) 325 mg PO QDAY [facility] Last Admin: 06/02/21 11:16 Dose: Not Given Documented by: Atorvastatin Calcium (Atorvastatin 40 Mg Tab) 40 mg PO QHS [facility] Last Admin: 06/01/21 21:44 Dose: 40 mg Documented by: Benzonatate (Benzonatate 100 Mg Cap) 100 mg PO Q8HR PRN PRN Reason: Cough Heparin Sodium (Porcine) (Heparin 5,000 Unit/1 Ml Vial) 5,000 unit SUB-Q Q8HR [facility] Last Admin: 06/02/21 05:21 Dose: 5,000 unit Documented by: Hydromorphone HCl (Hydromorphone 2 Mg/1 Ml Inj) 1 mg IV Q3H PRN PRN Reason: Pain , Severe (7-10) Last Admin: 06/02/21 11:12 Dose: 1 mg Documented by: Magnesium Hydroxide (Magnesium Hydroxide (Mom) Oral Liqd Udc) 30 ml PO QDAY PRN PRN Reason: Constipation Naproxen (Naproxen 500 Mg Tab) 500 mg PO BID [facility] Last Admin: 06/02/21 11:16 Dose: Not Given Documented by: Nitroglycerin (Nitroglycerin 0.4 Mg Tab Subl) 0.4 mg SL Q5M PRN PRN Reason: Chest Pain Ondansetron HCl (Ondansetron 4 Mg/2 Ml Inj) 4 mg IV Q6H PRN PRN Reason: Nausea Last Admin: 06/02/21 11:13 Dose: 4 mg Documented by: Pantoprazole Sodium (Pantoprazole 40 Mg Inj) 40 mg IV BID [facility] Last Admin: 06/02/21 11:13 Dose: 40 mg Documented by: Sodium Chloride (Sodium Chloride 0.9% 10 Ml Flush Syringe) 10 ml IV PRN PRN PRN Reason: LINE FLUSH Last Admin: 06/01/21 21:45 Dose: 10 ml Documented by: Tramadol HCl (Tramadol 50 Mg Tab) 50 mg PO Q6H PRN PRN Reason: Pain, Moderate (4-6) reviewed/updated patient's home and current medications Review of Systems - Review of Systems All systems: negative (per HPI) Exam - Constitutional Vital Signs: Temp Pulse Resp BP Pulse Ox 98.5 F 60 18 147/72 96 06/02/21 16:23 06/02/21 16:23 06/02/21 16:23 06/02/21 16:23 06/02/21 16:23 General appearance: no acute distress - EENT Eyes: PERRL, EOM intact - Respiratory Respiratory effort: normal Respiratory: bilateral: CTA - Cardiovascular Rhythm: regular Heart Sounds: Present: S1 & S2 - Gastrointestinal General gastrointestinal: Present: soft, non-tender, non-distended - Integumentary Integumentary: Present: clear, warm - Neurologic Neurological: alert and oriented x3 - Psychiatric Psychiatric: appropriate mood/affect - Labs CBC & Chem 7: 06/02/21 05:03 06/02/21 05:03 Lab Results: Laboratory Results - last 24 hr 06/01/21 06/02/21 06/02/21 22:14 05:03 05:03 WBC 5.7 RBC 4.99 Hgb 14.2 Hct 43.6 H MCV 87 MCH 29 MCHC 33 RDW 14.0 Plt Count 151 Lymph % (Auto) 43.3 H [place] % (Auto) 6.0 Eos % (Auto) 0.8 Baso % (Auto) 0.9 Lymph # (Auto) 2.5 [place] # (Auto) 0.3 Eos # (Auto) 0.0 Baso # (Auto) 0.1 Seg Neutrophils % 49.0 Seg Neutrophils # 2.8 Sodium 142 Potassium 4.1 Chloride 105.7 Carbon Dioxide 26 Anion Gap 14 BUN 14 Creatinine 1.0 Estimated GFR > 60 BUN/Creatinine Ratio 14 Glucose 85 POC Glucose 103 Calcium 9.2 Total Bilirubin 0.40 AST 16 ALT 8 Alkaline Phosphatase 114 Total Protein 6.9 Albumin 4.0 Albumin/Globulin Ratio 1.4 Lipase 13 - Imaging X-ray: report reviewed Ultrasound: report reviewed Assessment and Plan nausea/vomiting - recent onset, improved at time of exam. tolerated liquids. unclear etiology, but okay to advance diet as tolerated. cont/start ppi daily for likely reflux component. if tolerating po, can f/u in gi clinic as outpatient in 2 weeks and can discuss outpatient endoscopy based on sx's. chest pain - neg cardiac work-up, radiating to left side of chest and to back. liver enzymes/lipase normal. US without gallstones. also of note, pt has not had prior screening colonoscopy and should have this done as outpatient basis as well.
--- NOTE | 2021-06-02 17:54 | Progress Note ---
Assessment and Plan Assessment and plan: Assessment: Presented with significant anterior chest pain radiating to left arm associated with nausea/vomiting Mostly resolved but not completely, aspirin and nitro, troponins x3 is negative Mild epigastric pain/discomfort with significant nausea/vomiting and some reproducible epigastric tenderness. LFTs normal. History of GERD and chronic constipation from IBD No personal or family of CAD. No history of chest pains. Smokes 1 pack of cigarettes in 1 week. History of hypertension Stable sinus bradycardia Questionable history of TIA Mild obesity The predominant symptoms currently are nausea and vomiting with some epigastric tenderness. Plan: Hemodynamically stable Cardiology is evaluating, nuclear stress test normal today Echo unremarkable with a normal LV function. No wall motion normalities Lipase normal. LFTs remain normal. KUB unremarkable, afebrile. Normal WBC. Gallbladder ultrasound unremarkable except fatty liver GI consulted for intractable nausea and vomiting. GI recommends discharge for outpatient follow-up/work-up if patient tolerates diet. Disposition: Advance diet, possible discharge tomorrow if tolerates diet. Discussed with the patient in detail and the staff History Interval history: Nuclear stress test negative today. Patient continues to experience nausea and vomiting but better controlled with the antiemetics. Continues to have some epigastric pain/discomfort. GI consulted. Patient is receiving PPI and antiemetic. Gallbladder ultrasound unremarkable except for fatty liver. LFTs however normal. Afebrile. Normal WBC. KUB unremarkable. Hospitalist Physical - Constitutional Vitals: Temp Pulse Resp BP Pulse Ox 98.5 F 60 18 147/72 96 06/02/21 16:23 06/02/21 16:23 06/02/21 16:23 06/02/21 16:23 06/02/21 16:23 General appearance: Present: no acute distress, other (Anxious) - EENT Eyes: Present: PERRL, EOM intact ENT: clear oral mucosa - Neck Neck: Present: supple - Respiratory Respiratory effort: normal Respiratory: bilateral: CTA - Cardiovascular Rhythm: regular - Extremities Extremities: No edema - Abdominal General gastrointestinal: soft, tender (Mild epigastric tenderness.), non- distended, normal bowel sounds - Integumentary Integumentary: Absent: rash - Neurologic Neurologic: no focal deficits HEART Score - HEART Score EKG: Normal Age: > 65 Risk factors: 1-2 risk factors Troponin: Troponin T < 0.010 ng/mL (0.00-0.029) 07/17/21 15:41 Troponin: < normal limit - Critical Actions Critical Actions: 0-3 pts:0.9-1.7%risk of adverse cardiac event.Candidate for discharge Results - Labs CBC & Chem 7: 06/02/21 05:03 06/02/21 05:03 Labs: Laboratory Last Values WBC 5.7 K/mm3 (4.5-11.0) 06/02/21 05:03 RBC 4.99 M/mm3 (3.65-5.03) 06/02/21 05:03 Hgb 14.2 gm/dl (10.1-14.3) 06/02/21 05:03 Hct 43.6 % (30.3-42.9) H 06/02/21 05:03 MCV 87 fl (79-97) 06/02/21 05:03 MCH 29 pg (28-32) 06/02/21 05:03 MCHC 33 % (30-34) 06/02/21 05:03 RDW 14.0 % (13.2-15.2) 06/02/21 05:03 Plt Count 151 K/mm3 (140-440) 06/02/21 05:03 Lymph % (Auto) 43.3 % (13.4-35.0) H 06/02/21 05:03 [place] % (Auto) 6.0 % (0.0-7.3) 06/02/21 05:03 Eos % (Auto) 0.8 % (0.0-4.3) 06/02/21 05:03 Baso % (Auto) 0.9 % (0.0-1.8) 06/02/21 05:03 Lymph # (Auto) 2.5 K/mm3 (1.2-5.4) 06/02/21 05:03 [place] # (Auto) 0.3 K/mm3 (0.0-0.8) 06/02/21 05:03 Eos # (Auto) 0.0 K/mm3 (0.0-0.4) 06/02/21 05:03 Baso # (Auto) 0.1 K/mm3 (0.0-0.1) 06/02/21 05:03 Seg Neutrophils % 49.0 % (40.0-70.0) 06/02/21 05:03 Seg Neutrophils # 2.8 K/mm3 (1.8-7.7) 06/02/21 05:03 Sodium 142 mmol/L (137-145) 06/02/21 05:03 Potassium 4.1 mmol/L (3.6-5.0) 06/02/21 05:03 Chloride 105.7 mmol/L (98-107) 06/02/21 05:03 Carbon Dioxide 26 mmol/L (22-30) 06/02/21 05:03 Anion Gap 14 mmol/L 06/02/21 05:03 BUN 14 mg/dL (7-17) 06/02/21 05:03 Creatinine 1.0 mg/dL (0.6-1.2) 06/02/21 05:03 Estimated GFR > 60 ml/min 06/02/21 05:03 BUN/Creatinine Ratio 14 % 06/02/21 05:03 Glucose 85 mg/dL (65-100) 06/02/21 05:03 POC Glucose 103 mg/dL (70-105) 06/01/21 22:14 Calcium 9.2 mg/dL (8.4-10.2) 06/02/21 05:03 Total Bilirubin 0.40 mg/dL (0.1-1.2) 06/02/21 05:03 AST 16 units/L (5-40) 06/02/21 05:03 ALT 8 units/L (7-56) 06/02/21 05:03 Alkaline Phosphatase 114 units/L (35-129) 06/02/21 05:03 Troponin T < 0.010 ng/mL (0.00-0.029) 05/31/21 15:41 Total Protein 6.9 g/dL (6.3-8.2) 06/02/21 05:03 Albumin 4.0 g/dL (3.9-5) 06/02/21 05:03 Albumin/Globulin Ratio 1.4 % 06/02/21 05:03 Lipase 13 units/L (13-60) 06/02/21 05:03 Vicente/IV: Voiding Method Toilet Active Medications - Current Medications Current Medications: Generic Name Dose Route Start Last Admin Trade Name Freq PRN Reason Stop Dose Admin Acetaminophen 650 mg 05/30/21 22:17 Acetaminophen 325 Mg Tab PO Q6H PRN Pain, Mild (1-3) Amlodipine Besylate 5 mg 06/01/21 10:00 06/02/21 11:17 Amlodipine 5 Mg Tab PO Not Given QDAY [facility] Aspirin 325 mg 05/31/21 10:00 06/02/21 11:16 Aspirin Ec 325 Mg Tab PO Not Given QDAY [facility] Atorvastatin Calcium 40 mg 05/31/21 22:00 06/01/21 21:44 Atorvastatin 40 Mg Tab PO 40 mg QHS ROSA M Administration Benzonatate 100 mg 05/30/21 22:20 Benzonatate 100 Mg Cap PO Q8HR PRN Cough Heparin Sodium (Porcine) 5,000 unit 05/31/21 06:00 06/02/21 16:15 Heparin 5,000 Unit/1 Ml Vial SUB-Q 5,000 unit Q8HR ROSA M Administration Hydromorphone HCl 1 mg 05/30/21 23:40 06/02/21 11:12 Hydromorphone 2 Mg/1 Ml Inj IV 1 mg Q3H PRN Administration Pain , Severe (7-10) Magnesium Hydroxide 30 ml 05/31/21 22:48 Magnesium Hydroxide (Mom) Oral Liqd Udc PO QDAY PRN Constipation Naproxen 500 mg 05/31/21 10:00 06/02/21 11:16 Naproxen 500 Mg Tab PO Not Given BID [facility] Nitroglycerin 0.4 mg 05/30/21 22:17 Nitroglycerin 0.4 Mg Tab Subl SL Q5M PRN Chest Pain Ondansetron HCl 4 mg 06/01/21 11:16 06/02/21 11:13 Ondansetron 4 Mg/2 Ml Inj IV 4 mg Q6H PRN Administration Nausea Pantoprazole Sodium 40 mg 06/01/21 16:00 06/02/21 11:13 Pantoprazole 40 Mg Inj IV 40 mg BID ROSA M Administration Sodium Chloride 10 ml 05/30/21 22:17 06/01/21 21:45 Sodium Chloride 0.9% 10 Ml Flush Syringe IV 10 ml PRN PRN Administration LINE FLUSH Tramadol HCl 50 mg 05/30/21 22:17 Tramadol 50 Mg Tab PO Q6H PRN Pain, Moderate (4-6)
[2021-06-03] MEDS: HEPARIN 5,000 UNIT/1 ML VIAL SUB-Q SCH (06:13)
--- NOTE | 2021-06-03 09:08 | Electrocardiograph Report ---
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
[2021-06-03] MEDS: NAPROXEN 500 MG TAB PO SCH (09:22)
[2021-06-03] MEDS: ASPIRIN EC 325 MG TAB PO SCH (09:23)
[2021-06-03] MEDS: amLODIPine 5 MG TAB PO SCH (09:23)
[2021-06-03] MEDS ORDERED: PANTOPRAZOLE 40 MG INJ IV SCH (10:00)
--- NOTE | 2021-06-03 10:52 | Progress Note ---
Assessment and Plan Chest pain * Patient is currently chest pain-free with no cardiac complaint. Troponin is negative x4. AMI is ruled out * Exercise MPI stress test 06/02/2021: Negative for reversible ischemia * Echo reviewed - EF 55-60%, mild diastolic dysfxn, no significant valvular abnormalities. Hypertension * Continue current antihypertensive regimen: Amlodipine 5 mg Tobacco use * Cessation encouraged Patient may discharge from cardiology standpoint. Will follow on as-needed basis. Patient should follow-up with Dr. Luciana Kay, [facility] heart specialists in our [place] office on 06/16/2021 at 1 PM. #[id number] Patient seen in conjunction with Dr. Andres who agrees with this assessment and plan of care - Patient Problems (1) Chest pain Current Visit: Yes Status: Resolved (2) Hypertension Current Visit: Yes Status: Chronic Qualifiers: Hypertension type: primary hypertension Qualified Code(s): I10 - Essential (primary) hypertension (3) GERD (gastroesophageal reflux disease) Current Visit: Yes Status: Chronic (4) Tobacco abuse Current Visit: Yes Status: Chronic (5) H/O TIA (transient ischemic attack) and stroke Current Visit: Yes Status: Chronic Subjective Date of service: 06/03/21 Principal diagnosis: Chest Pain Interval history: Patient resting comfortably in bed. No shortness of breath or chest pain overnight. Telemetry reviewed: Sinus bradycardia 56. No events Objective Last Vital Signs Temp 98.0 F 06/03/21 07:57 Pulse 59 L 06/03/21 07:57 Resp 18 06/03/21 07:57 BP 140/64 06/03/21 07:57 Pulse Ox 96 06/03/21 07:57 - Physical Examination General: No Apparent Distress HEENT: Positive: EOMI, Normocephaly, Mucus Membranes Moist Neck: Positive: neck supple, trachea midline Cardiac: Positive: Regular Rhythm, S1/S2 Lungs: Positive: Normal Exam, Normal Breath Sounds Neuro: Positive: Grossly Intact Abdomen: Positive: Soft. Negative: Tender Skin: Negative: Rash, Wound Musculoskeletal: No Pain Extremities: Present: upper extr. pulses, lower extr. pulses. Absent: edema - Imaging and Cardiology EKG: report reviewed, image reviewed Echo: report reviewed (Echocardiogram 05/30/2021: LVEF is 55 to 60%. LV normal size, LV SF normal. Mild diastolic dysfunction. RV SF is normal. No valvular abnormalities.) - Telemetry EKG Rhythm: Sinus Bradycardia - EKG Sinus rhythms and dysrhythmias: sinus rhythm
[2021-06-03 12:45] VITALS: BP 178/89
--- NOTE | 2021-06-03 13:03 | Discharge Summary ---
Providers - Providers Date of Admission: 05/30/21 21:24 Attending physician: DINO RAMIRES MD 05/30/21 Consult to Cardiac Rehabilitation [CONS] Routine Reason For Exam: Phase I 05/31/21 09:47 Consult to Physician [CONS] Routine Comment: Consulting Provider: AUSTEN NEWTON Physician Instructions: Reason For Exam: cp 06/02/21 10:28 Consult to Physician [CONS] Routine Comment: Consulting Provider: ALPESH SHEPARD Physician Instructions: gi consult Reason For Exam: intracable N/V Primary care physician: SCIENTIFIC INFORMATICS ANALYST Hospitalization Reason for admission: Chest pain Condition: Serious Hospital course: 65-year-old -Northern [place] female with history of hypertension, stomach ulcer and TIA was brought to the emergency room because of intense pressure-like chest pain to the mid sternum and left side of the chest that started about 4 hours prior to presentation. It is associated with some mild shortness of breath and nausea without vomiting. She denies any fever, cough, lower extremity swelling, abdominal pain. She is an occasional tobacco smoker. Currently she says her pain is 9 out of 10 in intensity and feels like "someone is sitting on my chest." No recent travel or sick contacts at home. She is vaccinated against COVID-19. No family history of early heart attack. In the emergency room initial cardiac enzyme is negative troponin is 0.010 Presented with significant anterior chest pain radiating to left arm associated with nausea/vomiting Mostly resolved but not completely, aspirin and nitro, troponins x3 is negative Mild epigastric pain/discomfort with significant nausea/vomiting and some reproducible epigastric tenderness. LFTs normal. History of GERD and chronic constipation from IBD No personal or family of CAD. No history of chest pains. Smokes 1 pack of cigarettes in 1 week. History of hypertension Stable sinus bradycardia Questionable history of TIA Mild obesity The predominant symptoms currently are nausea and vomiting with some epigastric tenderness. Plan: Gallbladder ultrasound unremarkable except fatty liver GI consulted for intractable nausea and vomiting. GI recommends discharge for outpatient follow-up/work-up if patient tolerates diet. Disposition: Advance diet, possible discharge tomorrow if tolerates diet. Discussed with the patient in detail and the staff Nuclear stress test negative today. Patient continues to experience nausea and vomiting but better controlled with the antiemetics. Continues to have some epigastric pain/discomfort. GI consulted. Patient is receiving PPI and antiemetic. Gallbladder ultrasound unremarkable except for fatty liver. LFTs however normal. Afebrile. Normal WBC. KUB unremarkable.\\ Recommended to avoid NSAIDS (1) Atypical Chest pain LIKELY SECONDARY TO GERD Current Visit: Yes Status: Resolved (2) Hypertension Current Visit: Yes Status: Chronic Qualifiers: Hypertension type: primary hypertension Qualified Code(s): I10 - Essential (primary) hypertension (3) GERD (gastroesophageal reflux disease) Current Visit: Yes Status: Chronic (4) Tobacco abuse Current Visit: Yes Status: Chronic (5) H/O TIA (transient ischemic attack) and stroke Current Visit: Yes Status: Chronic Disposition: DC- TO HOME OR SELFCARE Final Discharge Diagnosis (Prints w/discharge instructions): ATYPICAL CHEST PAIN WITH GERD Time spent for discharge: 35 MINS Core Measure Documentation - Palliative Care Palliative Care/ Comfort Measures: Not Applicable - Core Measures Any of the following diagnoses?: none Exam - Physical Exam Narrative exam: General appearance: Present: no acute distress - EENT Eyes: Present: PERRL, EOM intact ENT: clear oral mucosa - Neck Neck: Present: supple - Respiratory Respiratory effort: normal Respiratory: bilateral: CTA - Cardiovascular Rhythm: regular - Extremities Extremities: No edema - Abdominal General gastrointestinal: soft, NON TENDER non-distended, normal bowel sounds - Integumentary Integumentary: Absent: rash - Neurologic Neurologic: no focal deficits - Constitutional Vitals: Temp Pulse Resp BP Pulse Ox 98.0 F 61 18 178/89 98 06/03/21 11:37 06/03/21 11:37 06/03/21 11:37 06/03/21 11:37 06/03/21 11:37 Plan Activity: advance as tolerated, fall precautions Diet: low fat Special Instructions: record daily weights, record daily BP diary, smoking cessation Follow up with: EVI HOLLEY MD [Staff Physician] - 06/16/21 1:00 pm PRIMARY CAREMD [Primary Care Provider] - 3-5 Days ADONIS BARRERA MD [Staff Physician] - 7 Days Prescriptions: AtorvaSTATin [Lipitor] 40 mg PO QHS #30 tablet Aspirin [Adult Aspirin] 81 mg PO DAILY #30 tablet. amLODIPine 5 mg PO QDAY #30 tablet Omeprazole 40 mg PO DAILY #90 capsule. traMADoL [Ultram 50 MG tab] 50 mg PO Q6H PRN #14 tablet PRN Reason: Pain, Moderate (4-6)
[2021-06-04] MEDS ORDERED: PANTOPRAZOLE 40 MG TAB PO SCH (07:30)
== END 2021-06-03 13:40 | disposition home or self-care (01) ==
LOC: ED 16:41 → 4A 21:24
PROVIDERS: ADMIT Hospitalist; ATTEND Internal Medicine
DX: I24.9 Acute ischemic heart disease, unspecified (principal); I16.0 Hypertensive urgency; R07.9 Chest pain, unspecified; I10 Essential (primary) hypertension; K21.9 Gastro-esophageal reflux disease without esophagitis; G45.9 Transient cerebral ischemic attack, unspecified; E66.9 Obesity, unspecified; R00.1 Bradycardia, unspecified; F17.210 Nicotine dependence, cigarettes, uncomplicated; Z79.899 Other long term (current) drug therapy; Z98.890 Other specified postprocedural states; Z90.710 Acquired absence of both cervix and uterus; Z98.891 History of uterine scar from previous surgery; Z95.1 Presence of aortocoronary bypass graft; Z79.82 Long term (current) use of aspirin; Z86.73 Personal history of transient ischemic attack (TIA), and cerebral infarction without residual deficits; Z68.30 Body mass index [BMI] 30.0-30.9, adult
CPT/HCPCS: 36415; 71045; 74018; 76705; 78452; 80048; 80053; 82962; 83690; 84484; 85025; 93005; 93017; 93306; 96372; 96374; 96375; 96376; 99285; 99406; A9270; A9502; C9113; G0378; J1170; J1644; J2405; J3010; Q0162

== ENCOUNTER 2022-07-14 13:17 | Emergency (ER) | payer MEDICARE, MEDICAID | END 2022-07-15 12:11 | disposition left against medical advice (07) | LOC: ED 13:17 | DX: R07.9 Chest pain, unspecified (principal); Z53.21 Procedure and treatment not carried out due to patient leaving prior to being seen by health care provider ==

== ENCOUNTER 2022-07-15 11:11 | Emergency (ER) | payer MEDICARE, MEDICAID ==
[2022-07-15 13:05] LABS: INR 1.02 (0.87-1.13)
[2022-07-15 13:06] LABS: Alanine Aminotransferase 11 units/L (7-56); Albumin 4.7 g/dL (3.9-5); BUN/Creatinine Ratio 16; Basophils % (Auto) 0.9 % (0.0-1.8); Blood Urea Nitrogen 16 mg/dL (7-17); Calcium 10.1 mg/dL (8.4-10.2); Eosinophils # (Auto) 0.1 K/mm3 (0.0-0.4); Eosinophils % (Auto) 1.3 % (0.0-4.3); Hematocrit 44.6 % (30.3-42.9); Hemolysis Index 1; Lymphocytes # (Auto) 1.6 K/mm3 (1.2-5.4); Mean Corpuscular HGB Conc 34 % (30-34); Mean Corpuscular Volume 88 fl (79-97); Monocytes # (Auto) 0.4 K/mm3 (0.0-0.8); Monocytes % (Auto) 7.5 % (0.0-7.3); Partial Thromboplastin Time 34.5 Sec. (24.2-36.6); Platelet Count 150 K/mm3 (140-440); Red Blood Count 5.07 M/mm3 (3.65-5.03)
--- NOTE | 2022-07-15 13:16 | XRay Report ---
CHEST 2 VIEWS INDICATION / CLINICAL INFORMATION: Chest Pain. COMPARISON: None available. FINDINGS: SUPPORT DEVICES: None. HEART / MEDIASTINUM: No significant abnormality. LUNGS / PLEURA: No significant pulmonary or pleural abnormality. No pneumothorax. ADDITIONAL FINDINGS: No significant additional findings. IMPRESSION: 1. No acute findings. Signer Name: Fuad Barrientos MD Signed: 07/15/2022 1:12 PM Workstation Name: [email or web address]
--- NOTE | 2022-07-15 18:17 | Electrocardiograph Report ---
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
--- NOTE | 2022-07-16 11:31 | Emergency Department Report ---
ED Chest Pain HPI - General Chief Complaint: Chest Pain Stated Complaint: CHEST PAIN Time Seen by Provider: 07/16/22 08:31 Source: patient, EMS Mode of arrival: Stretcher Limitations: No Limitations - History of Present Illness Initial Comments: 66-year-old female with a remote smoking history who presents with chest pain that started after eating on Wednesday about 5 days ago progressively getting worse. Patient describes pain as pressure in the left chest and radiating to both right left upper arm. No trauma or fall reported. Patient initially tho ught this was acid reflux but took some medication without improvement. No fever or chills reported. Patient also reports some wet cough. No other modifying or associated factors reported. Severity scale (0 -10): 5 - Related Data Previous Rx's Medication Instructions Recorded Last Taken Type Benzonatate [Tessalon Perles] 100 mg PO Q8HR PRN #20 capsule 08/08/19 Unknown Rx Ondansetron [Zofran ODT TAB] 4 mg PO Q8HR PRN #20 tab.rapdis 08/08/19 Unknown Rx Aspirin [Adult Aspirin] 81 mg PO DAILY #30 tablet. 06/03/21 Unknown Rx AtorvaSTATin [Lipitor] 40 mg PO QHS #30 tablet 06/03/21 Unknown Rx Omeprazole 40 mg PO DAILY #90 capsule. 06/03/21 Unknown Rx amLODIPine 5 mg PO QDAY #30 tablet 06/03/21 Unknown Rx traMADoL [Ultram 50 MG tab] 50 mg PO Q6H PRN #14 tablet 06/03/21 Unknown Rx hydrOXYzine PAMOATE [Vistaril] 50 mg PO Q6HR PRN 5 Days #20 07/16/22 Unknown Rx capsule NS Allergies Allergy/AdvReac Type Severity Reaction Status Date / Time codeine Allergy Vomiting Verified 07/15/22 11:27 hydrocodone Allergy Vomiting Verified 07/15/22 11:27 morphine Allergy Rash Verified 07/15/22 11:27 Penicillins Allergy Vomiting Verified 07/15/22 11:27 Heart Score - HEART Score History: Slightly suspicious EKG: Normal Age: > 65 Risk factors: 1-2 risk factors Troponin: < normal limit HEART Score: 3 - EKG Read Time Time EKG Completed: 11:52 EKG Read Time: 11:57 ED Review of Systems ROS: Stated complaint: CHEST PAIN Other details as noted in HPI Comment: All other systems reviewed and negative Respiratory: cough Cardiovascular: chest pain ED Past Medical Hx - Past Medical History Hx Hypertension: Yes Additional medical history: Stomach ulcers, TIA's - Surgical History Hx Appendectomy: Yes Additional Surgical History: hysterectomy, x3, laparoscopy for endometriosis - Social History Smoking Status: Never Smoker Substance Use Type: None - Medications Home Medications: Home Medications Medication Instructions Recorded Confirmed Last Taken Type Benzonatate [Tessalon Perles] 100 mg PO Q8HR PRN #20 capsule 08/08/19 05/31/21 Unknown Rx Ondansetron [Zofran ODT TAB] 4 mg PO Q8HR PRN #20 tab.rapdis 08/08/19 05/31/21 Unknown Rx Aspirin [Adult Aspirin] 81 mg PO DAILY #30 tablet. 06/03/21 Unknown Rx AtorvaSTATin [Lipitor] 40 mg PO QHS #30 tablet 06/03/21 Unknown Rx Omeprazole 40 mg PO DAILY #90 capsule. 06/03/21 Unknown Rx amLODIPine 5 mg PO QDAY #30 tablet 06/03/21 Unknown Rx traMADoL [Ultram 50 MG tab] 50 mg PO Q6H PRN #14 tablet 06/03/21 Unknown Rx hydrOXYzine PAMOATE [Vistaril] 50 mg PO Q6HR PRN 5 Days #20 07/16/22 Unknown Rx capsule NS ED Physical Exam - General Limitations: No Limitations General appearance: alert, in no apparent distress - Head Head exam: Present: normal inspection - Eye Eye exam: Present: normal appearance Pupils: Present: normal accommodation - ENT ENT exam: Present: normal exam, normal orophraynx - Neck Neck exam: Present: normal inspection, full ROM. Absent: tenderness - Respiratory Respiratory exam: Present: normal lung sounds bilaterally. Absent: respiratory distress, accessory muscle use - Cardiovascular Cardiovascular Exam: Present: regular rate, normal rhythm, normal heart sounds - GI/Abdominal GI/Abdominal exam: Present: soft, normal bowel sounds. Absent: distended, tenderness - Extremities Exam Extremities exam: Present: normal inspection, full ROM, normal capillary refill. Absent: tenderness, pedal edema - Back Exam Back exam: Absent: tenderness - Neurological Exam Neurological exam: Present: alert, oriented X3 - Psychiatric Psychiatric exam: Present: normal affect, normal mood - Skin Skin exam: Present: warm, normal color ED Course Vital Signs 07/15/22 07/16/22 07/16/22 11:26 06:12 06:15 Temperature 98.3 F Pulse Rate 91 H Respiratory 14 Rate Blood Pressure 165/77 Blood Pressure 163/83 [Left] O2 Sat by Pulse 98 100 100 Oximetry 07/16/22 07/16/22 07/16/22 06:26 06:30 06:46 Temperature 98.0 F 98.0 F Pulse Rate 54 L 55 L Respiratory 19 17 Rate Blood Pressure 162/63 162/63 Blood Pressure 162/63 [Left] O2 Sat by Pulse 99 99 100 Oximetry 07/16/22 07/16/22 07/16/22 07:00 07:16 07:30 Temperature Pulse Rate Respiratory Rate Blood Pressure 162/63 162/63 162/63 Blood Pressure [Left] O2 Sat by Pulse 100 98 100 Oximetry 07/16/22 07/16/22 07/16/22 07:46 08:00 08:16 Temperature Pulse Rate Respiratory Rate Blood Pressure 149/73 147/69 151/75 Blood Pressure [Left] O2 Sat by Pulse 100 99 98 Oximetry 07/16/22 07/16/22 07/16/22 08:30 08:46 09:00 Temperature Pulse Rate Respiratory Rate Blood Pressure 135/61 143/65 134/64 Blood Pressure [Left] O2 Sat by Pulse 100 99 100 Oximetry 07/16/22 07/16/22 07/16/22 09:16 09:30 09:46 Temperature Pulse Rate Respiratory Rate Blood Pressure 136/63 146/71 130/54 Blood Pressure [Left] O2 Sat by Pulse 99 100 98 Oximetry 07/16/22 07/16/22 07/16/22 10:00 10:16 10:30 Temperature Pulse Rate Respiratory Rate Blood Pressure 153/79 133/68 134/64 Blood Pressure [Left] O2 Sat by Pulse 100 99 100 Oximetry 07/16/22 07/16/22 07/16/22 10:46 11:00 11:16 Temperature Pulse Rate Respiratory Rate Blood Pressure 126/61 137/70 152/66 Blood Pressure [Left] O2 Sat by Pulse 100 100 100 Oximetry 07/16/22 07/16/22 07/16/22 11:30 11:46 12:00 Temperature Pulse Rate Respiratory Rate Blood Pressure 151/77 153/70 166/73 Blood Pressure [Left] O2 Sat by Pulse 99 100 100 Oximetry 07/16/22 12:16 Temperature Pulse Rate Respiratory Rate Blood Pressure 165/69 Blood Pressure [Left] O2 Sat by Pulse 100 Oximetry LOUIS score - Louis Score Age > 65: (1) Yes Aspirin use within the Past 7 Days: (0) No 3 or more CAD Risk Factors: (0) No 2 or more Angina events in past 24 hrs: (1) Yes Known CAD with more than 50% Stenosis: (0) No Elevated Cardiac Markers: (0) No ST Deviation Greater than 0.5mm: (0) No LOUIS Score: 2 ED Medical Decision Making - Lab Data Result diagrams: 07/15/22 12:17 07/15/22 12:17 - EKG Data -: EKG Interpreted by Co EKG shows normal: sinus rhythm Rate: normal - EKG Data 07/16/22 11:36 Noted with normal sinus rhythm at a rate of 64 bpm with non specific ST abnormality in this ECG - Medical Decision Making Here with chest pain/pressure--differential could be but not limited to myocardial infarction, pulmonary embolism, costochondritis, anxiety, gastritis, GERD, pancreatitis, and or pyelonephritis--in order to rule out the above-- so will go ahead and order routine cardiopulmonary work-up that include troponin, EKG, chest x-ray, BNP, CKMB, and CBC, CMP and urinalysis for any correctable infectious process or electrolyte abnormality as a cause. In the meantime we will go ahead and give this patient 325 mg of p.o. aspirin while waiting for the above labs Initial EKG did not show any ST elevation or depression but nonspecific ST wave abnormality-- Lab review to be pretty unremarkable in this patient including initial troponin and repeated 6 hours later--this is likely noncardiac--patient reassured and DC home on Vistaril for possible anxiety or muscular-- Critical care attestation.: If time is entered above; I have spent that time in minutes in the direct care of this critically ill patient, excluding procedure time. ED Disposition Clinical Impression: Non-cardiac chest pain, Anxiety Chest pain Qualifiers: Chest pain type: unspecified Qualified Code(s): R07.9 - Chest pain, unspecified Disposition: 01 HOME / SELF CARE / HOMELESS Is pt being admited?: No Does the pt Need Aspirin: No Condition: Stable Instructions: Managing Anxiety, Adult, Nonspecific Chest Pain, Adult, Ea sy-to-Read Additional Instructions: It is very important that you take your new medication as prescribed to continue to help your symptoms Call and schedule follow-up with your primary doctor in the next 3 to 5 days for progress Please do not hesitate to call or return to emergency if your symptoms worsen Prescriptions: hydrOXYzine PAMOATE [Vistaril] 50 mg PO Q6HR PRN 5 Days #20 capsule NS PRN Reason: Pain , Severe (7-10) Referrals: PRIMARY CARE, [Primary Care Provider] - 3-5 Days Time of Disposition: 14:45
[2022-07-16] MEDS ORDERED: ASPIRIN 81 MG TAB CHEW PO ONE (11:40)
[2022-07-16 12:30] VITALS: BP 165/69
--- NOTE | 2022-07-17 13:36 | Electrocardiograph Report ---
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
== END 2022-07-16 16:55 | disposition home or self-care (01) ==
LOC: ED 11:11
DX: R07.9 Chest pain, unspecified (principal); F41.9 Anxiety disorder, unspecified; I10 Essential (primary) hypertension; Z88.0 Allergy status to penicillin; Z88.6 Allergy status to analgesic agent
CPT/HCPCS: 36415; 71046; 80053; 84484; 85025; 85610; 85730; 93005; 99283